=== PATIENT | female | born 1935 | race Caucasian/White ===

== ENCOUNTER 2016-10-10 00:56 | Day surgery (SDC) | payer MEDICARE, OTHER ==
[~2016-10-10] VITALS: Ht 160 cm; Wt 87.0 kg
[2016-10-10] VITALS (8 sets, daily range): BP systolic 99–133; BP diastolic 35–89; PULSE 56–77; RESP 20; O2SAT 98
[~2016-10-10 00:56] MED LIST: ACET1TAB44 PO; ALEN70TA2 PO; ATOR40TA69 PO; CHOL200047 PO; CLOP75TA28 PO; DABI150C PO; FLUT9.9S NS; FURO40TA4 PO; HYDR-4003 PO; LISI40TA PO; METO25TA6 PO; NITR0.4T SL; NYST1000 PO; OMEP20CA11 PO; POTA20TA16 PO; SENN1TAB90 PO; VITA150T PO
[2016-10-10] MEDS ORDERED: Propofol 10,000 mCg/mL 20 mL Inj ONE (00:57)
[2016-10-10] MEDS ORDERED: Lactated Ringer's 1,000 ML IV ONE (05:00)
--- NOTE | 2016-10-10 13:00 | NUR ---
Admitted today for an elective cardioversion with anesthesia today with Dr Sesay Atrial fib rhythm on admit to [facility] - Daughter is at bedside.
[2016-10-10] MEDS ORDERED: FURO-128 PO (14:35)
[2016-10-10] MEDS ORDERED: POTA20TA16 PO (14:35)
[2016-10-10] MEDS ORDERED: 0.9% Sodium Chloride 1,000 ML ONE (15:00)
--- NOTE | 2016-10-10 15:17 | PCM.ANEP2 ---
Post Anesthesia Evaluation ASA/CMS Post Anesthesia VS in Patient's Normal Range?: Yes Resp Stable; Airway Patent?: Yes CV Function & Hydration Stable: Yes Mental Status Recovered?: Yes Pain control Satisfactory?: Yes N/V Control Satisfactory?: Yes Joseph Ferrari MD Oct 10, 2016 15:17
--- NOTE | 2016-10-10 15:17 | PCM.HPANE ---
Patient Data Surgeon Admitting Provider: Attending Provider:Case Sesay MD Primary Care Physician:Rashaun Staley MD Other Provider:Odilia Resendezingham Anesthesia Reason for Visit Chronic Atrial Fibrillation Ht/WT & BMI Height (Feet): 5 Height (Inches): 3.00 Weight (Kilograms): 87.000 Body Mass Index 33.98 Allergies Coded Allergies: Penicillins (Verified Allergy, Severe, CONFUSION, 10/10/16) ibuprofen (Verified Allergy, Unknown, 10/10/16) Past Anesthesia History Anesthesia History: Denies:: Abnormal Airway, Anesthesia Reactions, Difficult Intubation, Fam Anesthesia Reaction, Fam Malignant Hypertherm, Malignant Hyperthermia Diabetes History Hx Diabetes?: No MRSA MRSA: No Medications Hypertension Medication: Yes Home Meds Incl Beta Bandar: Yes Previous Beta Bandar Dose >24: Previous Dose <24 Hours Active Scripts Nitroglycerin SL (Nitrostat)0.4 Mg Tab.subl0.4 Mg SL Q5MIN PRN For Chest Pain # 30 Prov:Sabino Crawford MD 09/01/16 Metoprolol Tartrate 25 Mg Thclbv38 Mg PO BID #60 TABLET Prov:Sabino Crawford MD 09/01/16 Clopidogrel 75 Mg Expbet54 Mg PO DAILY #30 TABLET Prov:Sabino Crawford MD 09/01/16 Reported Medications Potassium Chloride 20 Meq Tab.er.prt20 Meq PO Everyother day 30 Days Ref 0 TAKE WITH FOOD 10/10/16 Furosemide (Lasix)40 Mg Qecjbl24 Mg PO every other day 30 Days Ref 0 10/10/16 Sennosides/Docusate Sodium (Senna-Docusate Sodium Tablet)1 Each Tablet2 Each PO 10/07/16 Atorvastatin Calcium 40 Mg Louggf29 Mg PO DAILY Ref 0 10/07/16 Acetaminophen/Codeine 300-60mg 1 Each Tablet1 Tablet PO TID PRN Pain Ref 0 10/07/16 Omeprazole 20 Mg Capsule.dr20 Mg PO DAILY Ref 0 08/27/16 Vitamin B Complex & Vit C No.4 (Super B Complex)150 Mg Iwgrvj513 Mg PO DAILY 08/27/16 Cholecalciferol (Vitamin D3) (Vitamin D3)2,000 Unit Capsule2,000 Unit PO DAILY 08/27/16 Fluticasone Propionate (Flonase Allergy Relief)50 Mcg/Actuation [place].susp1 [place] NS DAILY 08/07/16 Alendronate Sodium (Fosamax)70 Mg Zjkdwk42 Mg PO monday 30 Days Ref 0 08/07/16 Dabigatran Etexilate Mesylate (Pradaxa)150 Mg Mgwtxwy872 Mg PO BID 30 Days 08/07/16 Hydrocodone-Acetaminophen 5-325 mg 1 Each Tablet1-2 Tablet PO QID PRN For Pain 05/18/16 Lisinopril 40 Mg Jqntaz02 Mg PO DAILY 04/06/15 Discontinued Reported Medications Atorvastatin (Lipitor)20 Mg Xlaolv87 Mg PO DAILY Ref 0 08/27/16 Discontinued Scripts Potassium Chloride 20 Meq Tab.er.prt20 Meq PO DAILYWM #30 Prov:Sabino Crawford MD 09/01/16 Furosemide 40 Mg Mokmre17 Mg PO DAILY #30 TABLET Prov:Sabino Crawford MD 09/01/16 Nystatin 100,000 Unit/1 Ml Oral.kuja852,000 Unit PO PCHS #1 Prov:Sabino Crawford MD 09/01/16 [Senna/Docusate Sodium] (Senokot S)1 TABLET TABLET No Conflict Check2 Tablet PO BID PRN For Constipation #30 Prov:Sabino Crawford MD 09/01/16 History History of ENT Problems?: No HEENT History: Positive for:: Sinus Problem Denies:: Abnormal Airway Cataracts Difficult Intubation Dysphagia Hearing Problem Hx of Heart Problems?: Yes Cardiovascular History: Positive for:: Congestive Heart Failure (Recent heart failure) Edema Hypertension Irregular Heartbeat Denies:: Cardiac Surgery Chest Pain Heart Murmur Pacemaker Peripheral Vascular Thrombophlebitis Valvular Heart Disease Hx of Respiratory Problem?: Yes Respiratory History: Positive for:: Asthma (self diagnosed) Denies:: COPD Chest Surgery Dyspnea Emphysema Hemoptysis Pneumonia Pulmonary Embolism (WORKUP 10/2012) Tuberculosis Use of C-PAP Machine (SNORES) Hx Neurologic Problems?: Yes Neurological History: Denies:: Alzheimer's Disease CVA (Questionable last April - TIA vs) Dementia Dizziness Headaches Parkinson's Disease Seizures Hx of GI Problems?: No Gastrointestinal History: Positive for:: Gastroesphageal Reflux Heartburn Denies:: Diverticulitis Gastrointestinal Bleeding Hepatitis Hiatal Hernia Rectal Bleeding Hx of Problems?: No Genitourinary History: Positive for:: Urinary Tract Infection Denies:: HX of Hemodialysis Kidney Stones HX of Peritoneal Dialysis: No Female Hx: Denies:: Currently Endometriosis Pelvic Inflammatory Problems with Breasts? Skin History: Positive for:: History Skin Disorders? (VERY DRY SKIN, PARTICULARLY EARS) Denies:: Pressure Ulcers Hx Musculoskeletal Problems?: Yes Musculoskeletal History: Positive for:: Back Injury Joint Replacement (left knee) Denies:: Musculoskeletal Trauma Hx of Psycho/Social Problems?: No Psycho Social History: Denies:: Anxiety Bipolar Disorder Hx Depression Suicide Attempt Hx Surgeries?: Yes (thyroidectomy, large polyp removed) Hx Any Other Health Problems?: No Other History: Positive for:: Thyroid Disease Denies:: Cancer Endocrine Disease Hospitalization History Blood Transfusions: Positive for:: Accept Blood Products? Denies:: Blood Transfuse Reaction Blood Transfusions Hx Diabetes: No Hx Alcohol Use: YesAlcoholic Drinks Per Day: rareHx Substance Use: No Smoking Status: Former Smoker Have You Smoked inLast 12 mo: No Stop/Bang [place] Risk Assessment: Low Risk, <3 Yes Risk Assessment Category Category 1A: Patient has history of documented sleep apnea, and HAS NOT received any narcotic, sedative or anesthesia administration during this stay. Category 1B: Patient has history of documented sleep apnea, and HAS received any narcotic , sedative or anesthesia administration during this stay Category 2: Patient has SUSPECTED Obstructive Sleep Apnea, and HAS received any narcotic , sedative or anesthesia administration during this stay. Category 3: Patient has SUSPECTED Obstructive Sleep Apnea and HAS NOT received narcotic, sedative or anesthesia administration during this stay. Category 4: Outpatient in Procedural Areas with known sleep apnea or who screen positive for High Risk via the STOP/BANG questionnaire. Exam Exam Vital Signs Vital Signs Date Time Temp Pulse Resp B/P Pulse Ox O2 Delivery O2 Flow Rate FiO2 10/10/16 14:18 36.8 77 20 133/89 98 Nasal Cannula 2.00 General Appearance: Alert, Oriented X3, Cooperative, No Acute Distress HEENT/AIRWAY: MP 2, Other (dentures) Lungs: Clear to Auscultation, Normal Air Movement Heart: Normal S1, Normal S2 (irregularly irregular) Meds/Labs/Diagnostics Labs Test 10/10/16 14:27 Sodium Level 140mEq/L (134-144) Potassium Level 4.4mEq/L (3.5-5.2) Chloride Level 102mEq/L (97-108) Carbon Dioxide Level 26mmol/L (18-29) Blood Urea Nitrogen 26mg/dL (8-27) Creatinine 1.30mg/dL (0.57-1.00) Estimat Glomerular Filtration Rate 56mL/min (>59) Glucose Level 97mg/dL (60-99) Calcium Level 10.7mg/dL (8.5-10.1) Plan Impression Patient chart reviewed, patient interviewed and anesthestic plan with risks, benefits, and alternatives discussed, and informed consent obtained. ASA Physical Status: ASA3 Severe Disease Anesthetic Plan: GA Bene/Risks/Altern/Consents: Yes HP Complete Prior to Induction: Yes (H&P reviewed, consent given prior to procedure. computer info filled out after procedure.) Joseph Ferrari MD Oct 10, 2016 15:17
[2016-10-10] MEDS ORDERED: Atropine 1 mg/10 mL (Code) Syringe ONE (15:19)
--- NOTE | 2016-10-10 16:00 | NUR ---
Successful Cardioversion. EKG completed. Pt awake and orientated at time of D/C. Home care instructions reviewed with patient and patient's Daughter. NSB-NSR at time of D/C from [facility]. Office to call with follow up.
--- NOTE | 2016-10-10 16:12 | OUT PROC ---
[address] [address] PROCEDURE NOTE PATIENT: ANNETTE MEDRANO : 1935 MR#: [id number] ADMIT: 10/10/2016 JOB ID: [id number] DATE OF PROCEDURE: 10/10/2016 PROCEDURE: Cardioversion. INDICATION: Chronic AFib with history of intermittent fast ventricular rate, diastolic heart failure with preserved LV function. CONSENT: Informed consent was obtained from the patient after explaining benefits and the risks, which include, but not limited to, risk of asystole, stroke, anesthesia-related complication, etc. The patient verbalizes understanding. All the questions were answered. WRAPPER STEMMER OPERATOR: Case Sesay MD. SEDATION: Anesthesiologist gave the sedation. PROCEDURE: The patient was brought to [facility] in a stable condition. She has been on Pradaxa for more than two months for anticoagulation, 150 mg twice a day. Prior to procedure, electrolytes, TSH were checked. The patient was monitored constantly with blood pressure recording, EKG monitoring, and pulse oximetry monitoring. Anesthesiologist gave sedation. After adequate sedation, as patient was in AFib, using standard anterior-posterior pads, single synchronized 200-joule biphasic shock was delivered. It was successful. The patient converted to sinus rhythm. There was no immediate complication. CONCLUSION: Successful cardioversion. The patient received single 200- joule biphasic synchronized shock x1, which was successful. No immediate complication. She will remain on anticoagulation, Pradaxa 150 mg twice a day, along with other standard medications. No driving today. Discussed the plan with the patient's daughter. She will be seen in our clinic in couple of weeks with mid level with 12-lead EKG. If she flips back to AFib, will recommend antiarrhythmic therapy, likely amiodarone followed by cardioversion again.
== END 2016-10-10 23:59 | disposition home or self-care (01) ==
LOC: SOUO 00:56
PROVIDERS: ATTEND Internal Medicine Cardiovascular Disease
DX: I48.2 Chronic atrial fibrillation (principal); K74.60 Unspecified cirrhosis of liver; E78.5 Hyperlipidemia, unspecified; I70.203 Unspecified atherosclerosis of native arteries of extremities, bilateral legs; I50.30 Unspecified diastolic (congestive) heart failure; I12.9 Hypertensive chronic kidney disease with stage 1 through stage 4 chronic kidney disease, or unspecified chronic kidney disease; N18.9 Chronic kidney disease, unspecified; I34.0 Nonrheumatic mitral (valve) insufficiency; Z79.02 Long term (current) use of antithrombotics/antiplatelets

== ENCOUNTER 2016-11-14 08:07 | Inpatient (IN) | payer MEDICARE, OTHER ==
[~2016-11-14] VITALS: Ht 165.1 cm; Wt 91.2 kg
[~2016-11-14 08:07] MED LIST changes: +FURO-128 PO; -FURO40TA4 PO; -NYST1000 PO
[2016-11-14 08:24] VITALS: BP 160/69; PULSE 83; RESP 15; O2SAT 97
[2016-11-14] MEDS ORDERED: AMIO400T4 PO (08:31)
[2016-11-14] MEDS ORDERED: 0.9% Sodium Chloride 1,000 ML IV ONE (08:59)
--- NOTE | 2016-11-14 08:59 | ED.REPORT ---
HPI-Abd Pain F 40 and Over Date of Service Nov 14, 2016 ED Provider: Toby Yang MD 81 year old female with a history of colon polyps and partial colectomy, atrial fibrillation, on Pradaxa presents to the ER accompanied by her daughter complaining of an episode of grossly bloody stool this morning. She states that the bowel movement was composed almost completely of blood, with clots and some loose stool present. Patient denies fever, abdominal pain, dizziness/ lightheadedness, vomiting, and history of rectal bleeding. Colonoscopy within the last three years indicated polyps that resulted in partial colectomy. Nursing Notes Stated Complaint: BLOOD IN STOOL Chief Complaint: Female Abdominal Pain Nursing Notes Reviewed: Yes Allergies: Coded Allergies: Penicillins (Verified Allergy, Severe, CONFUSION, 11/14/16) ibuprofen (Verified Allergy, Unknown, 11/14/16) Scheduled Alendronate Sodium (Fosamax) 70 Mg Tablet 70 MG PO monday Amiodarone (Amiodarone) 400 Mg Tablet 400 MG PO BID Atorvastatin Calcium (Atorvastatin Calcium) 40 Mg Tablet 40 MG PO DAILY Cholecalciferol (Vitamin D3) (Vitamin D3) 2,000 Unit Capsule 2,000 UNIT PO DAILY Clopidogrel (Clopidogrel) 75 Mg Tablet 75 MG PO DAILY Dabigatran Etexilate Mesylate (Pradaxa) 150 Mg Capsule 150 MG PO BID Fluticasone Propionate (Flonase Allergy Relief) 50 Mcg/Actuation [place].susp 1 SPRAY NS DAILY Furosemide (Lasix) 40 Mg Tablet 40 MG PO every other day Lisinopril (Lisinopril) 40 Mg Tablet 40 MG PO DAILY Metoprolol Tartrate (Metoprolol Tartrate) 25 Mg Tablet 50 MG PO BID Omeprazole (Omeprazole) 20 Mg Capsule.dr 20 MG PO DAILY Potassium Chloride (Potassium Chloride) 20 Meq Tab.er.prt 20 MEQ PO Everyother day TAKE WITH FOOD Vitamin B Complex & Vit C No.4 (Super B Complex) 150 Mg Tablet 150 MG PO DAILY Scheduled PRN Acetaminophen/Codeine 300-60mg (Acetaminophen/Codeine 300-60mg) 1 Each Tablet 1 TABLET PO TID PRN PRN Pain Hydrocodone-Acetaminophen 5-325 mg (Hydrocodone-Acetaminophen 5-325 mg) 1 Each Tablet 1-2 TABLET PO QID PRN PRN For Pain Nitroglycerin SL (Nitrostat) 0.4 Mg Tab.subl 0.4 MG SL Q5MIN PRN PRN For Chest Pain Sennosides/Docusate Sodium (Senna-Docusate Sodium Tablet) 1 Each Tablet 2 EACH PO DIRECTED PRN PRN For Constipation General Time Seen by MD: 08:55 Chief Complaint Rectal bleeding Hx Obtained From: Patient Arrived By: Walk-in Sudden in Onset?: No Onset Occurred: 1 - 4 hours ago Associated with: Denies: Fever, Nausea, Vomiting Past Medical History Past Medical History Notes: PCP Rashaun Staley Past Medical History Adenomatous cecal polyp with high-grade dysplasia. Hyperparathyroidism Scoliosis Osteoporosis Hypertension Chronic low back pain Gout History of confusion with possible TIA Bilateral carotid artery stenosis demand ischemia Reports: Atrial fibrillation Past Surgical History parathyroid left total knee replacement bowel resection Reports: Hysterectomy Family History non-contributory Smoking History Former Smoker Social History Alcohol Use: Denies alcohol use Drug Use: Denies drug use Other Social History: Good social support, Local resident Ambulatory Status Independent Review of Systems Constitutional: Denies: Chills, Fever GI: Reports: Bloody/tarry stool, Diarrhea, Hematochezia, Denies: Abdominal pain, Hematemesis, Nausea, Vomiting Complete sys rev & neg: except as marked. Neurologic: Denies: Dizziness, Lightheaded, Spinning sensation, Syncope, Weakness Physical Exam Vital Signs Vital Signs (First) Date Time Temp Pulse Resp B/P Pulse Ox O2 Delivery O2 Flow Rate FiO2 11/14/16 08:24 36.5 83 15 160/69 97 Room Air Initial VS: Reviewed Head / Eyes: Atraumatic, Normocephalic Skin: Warm, Dry, No cyanosis Neurologic: Alert, Oriented, Nonfocal Psychiatric: Mood/affect normal, Behavior normal, Normal thought content General/Constitutional: Awake, Alert, Well developed, Well nourished Respiratory / Chest: Breath sounds NL, Breath sounds = bilat, No respiratory distress, No rales, No rhonchi, No wheezing, No stridor Cardiovascular: Heart rate NL, Regular rhythm, Heart sounds NL, Peripheral circulation NL Abdomen: Soft, No guarding, No rebound, No distention Tenderness/Guarding/Rebound: Positive: Tender LLQ... (Mild) Interpretation & Diagnostics Lab Results Interpretation Result Diagram: 11/14/16 0905 11/14/16 0905 Test 11/14/16 09:05 11/14/16 10:32 White Blood Count 4.2th/mm3 (3.8-10.1) Red Blood Count 3.78mil/mm3 (3.90-5.20) Hemoglobin 10.2g/dL (12.0-15.6) Hematocrit 32.5% (35.0-46.0) Mean Corpuscular Volume 86.0fL (81-100) Mean Corpuscular Hemoglobin 27.0pg (27.0-35.0) Mean Corpuscular Hemoglobin Concent 31.4% (32.0-37.0) Red Cell Distribution Width 15.8% (12.3-15.4) Platelet Count 195bil/L (150-400) Neutrophils (%) (Auto) 52.7% (40-74) Lymphocytes (%) (Auto) 34.2% (14-46) Monocytes (%) (Auto) 9.5% (4-12) Eosinophils (%) (Auto) 3.1% (0-5) Basophils (%) (Auto) 0.5% (0-3) Sodium Level 142mEq/L (134-144) Potassium Level 4.7mEq/L (3.5-5.2) Chloride Level 106mEq/L (97-108) Carbon Dioxide Level 26mmol/L (18-29) Blood Urea Nitrogen 31mg/dL (8-27) Creatinine 1.78mg/dL (0.57-1.00) Estimat Glomerular Filtration Rate 39mL/min (>59) Glucose Level 102mg/dL (60-99) Calcium Level 9.6mg/dL (8.5-10.1) Magnesium Level 1.8mg/dL (1.6-2.6) Total Bilirubin 0.3mg/dL (0.0-1.2) Aspartate Amino Transf (AST/SGOT) 18U/L (0-50) Alanine Aminotransferase (ALT/SGPT) 9U/L (0-32) Alkaline Phosphatase 56U/L (25-165) Total Protein 6.1g/dL (6.4-8.4) Albumin 3.7g/dL (3.4-5.0) Lipase 50U/L (13-60) Urine Color Yellow (YELLOW) Urine Appearance Hazy (CLEAR,HAZY) Urine pH 5.5 (5.0-8.0) Urine Specific [place] 1.020 (1.003-1.035) Urine Protein Negativemg/dL (NEG,TRACE) Urine Glucose (UA) Negativemg/dL (NEGATIVE) Urine Ketones Negativemg/dL (NEGATIVE) Urine Occult Blood Negative (NEGATIVE) Urine Nitrite Negative (NEGATIVE) Urine Bilirubin Negative (NEGATIVE) Urine Urobilinogen Normalmg/dL (NORMAL) Urine Leukocyte Esterase Negative (NEGATIVE) Urine RBC 0-2/hpf (0-2) Urine WBC 0-5/hpf (0-5) Urine Epithelial Cells Occasional/hpf (NONE-MOD) Urine Crystals None seen (NONE SEEN) Urine Bacteria None/hpf (NONE-FEW) Urine Hyaline Casts Occasional/lpf (NONE) Urine Granular Casts None seen (NONE SEEN) Urine Waxy Casts None seen (NONE SEEN) Urine Red Blood Cell Casts None seen (NONE SEEN) Urine White Blood Cell Casts None seen (NONE SEEN) Urine Mucus Present (None Seen) Urine Trichomonas None seen (NONE SEEN) Urine Yeast None (NONE SEEN) Urinalysis Comment None Urine Culture Reflexed Not indicated CT Abd / Pelvis Interpretation IMPRESSION: 1. Cystic left pelvic/adnexal mass. There is mass effect upon the adjacent structures as described above, including the urinary bladder Finding may indicate ovarian malignancy. Initial further assessment with pelvic ultrasound is recommended. 2. Limited evaluation of the bowel secondary to omission of intravenous and oral contrast. No definite acute process involving the bowel. 3. No evidence of urinary tract calcification, nor traction. 4. Cardiomegaly and coronary artery disease. Dictated by: Shayne Abreu M.D. on 11/14/2016 at 12:26 Approved by: Shayne Abreu M.D. on 11/14/2016 at 12:31 Study type: Abdominal CT no contrast Interpretation / Wet Read by: Interpret - Radiologist Re-Eval/Medical Decision Med Decision/Clinical Course 81 year old female with a history of colon polyps and partial colectomy, atrial fibrillation, on Pradaxa presents to the ER accompanied by her daughter complaining of an episode of grossly bloody stool this morning. She states that the bowel movement was composed almost completely of blood, with clots and some loose stool present. Patient denies fever, abdominal pain, dizziness/ lightheadedness, vomiting, and history of rectal bleeding. Colonoscopy within the last three years indicated polyps that resulted in partial colectomy. Here in the emergency department the patient is afebrile with stable vital signs and examination as above. Rectal examination reveals bright red blood without any obvious source of bleeding. 2 large-bore IVs were obtained and the patient's blood was sent for type and screen. Patient was treated with the below medications: Zofran IV fluids Laboratory studies were notable as below: Urine dip negative No leukocytosis Hct 32.5 down from 39.4 two months ago Electrolytes normal Acute kidney injury, Creatinine 1.78 elevated from 1.1-1.[address] scan of the abdomen was obtained as below: 1. Cystic left pelvic/adnexal mass. There is mass effect upon the adjacent structures as described above, including the urinary bladder Finding may indicate ovarian malignancy. Initial further assessment with pelvic ultrasound is recommended. 2. Limited evaluation of the bowel secondary to omission of intravenous and oral contrast. No definite acute process involving the bowel. 3. No evidence of urinary tract calcification, nor traction. 4. Cardiomegaly and coronary artery disease. Patient was discussed with gastroenterology Dr. Villarreal. Patient will be admitted to the critical care unit with plan for endoscopy tomorrow morning. At this time, cause of the patient's GI bleeding is likely lower in etiology and I am concerned that afore mentioned mass lesion may be a contributing factor. Patient discussed with admitting hospitalist and transferred for further management and consultation with gastroenterology. Source of Hx: Old records Re-Evaluation/Progress : Time of Eval: 11:14 Re-Evaluation/Progress Note: Discussed lab results and need for CT and admission. Patient is amenable to the plan. All other questions addressed. Consultation #1: Consulted With: Hospitalist Call Returned at: 12:55 Electrician Bus: Agrees with eval, Agrees with plan, Accepts admit Consultation #2: Referral / Consult Name: Kameron Ackerman MD Consulted With: On-call physician (GI) Call Returned at: 11:47 Electrician Bus: Will see patient Counseled Regarding: Diagnosis, Lab results, Need for admission Discharge & Departure Primary Impression: Lower GI bleed Additional Impressions: Acute kidney injury Hematochezia Anticoagulated by anticoagulation treatment Abdominal mass Abdominal location: unspecified location Qualified Code: R19.00 - Intra- abdominal and pelvic swelling, mass and lump, unspecified site History of colon polyps Disposition: ADMITTED TO HOSPITAL Discharge Condition All VS Reviewed: Yes Condition: Stable Referrals: NOPCP (PCP) Crit Care Except Billable Proc Time Spent: 105-134 minutes Services Performed: Patient management by me, Time spent at bedside, Reviewing test results, Reviewing imaging, Discussing patient care, Documentation in record, Time with fam/surrogate Scribe Attestation Portions of this note were transcribed by Hema Barnes. I, Dr. Yang, personally performed the history, physical exam and medical decision-making; I reviewed and confirmed the accuracy of the information in the transcribed note. Signed by: Jeremías Alvarez, 11/14/2016 and 12:59 Toby Yang MD Nov 14, 2016 08:59 HEMA BARNES Nov 14, 2016 09:01
[2016-11-14] MEDS ORDERED: Ondansetron 2 mg/mL 2 mL Inj IVPUSH ONE (09:00)
[2016-11-14] MEDS ORDERED: HYDROmorphone 0.5 mg/0.5 mL iSecure Syringe IVPUSH PRN (09:00)
[2016-11-14 09:37] LABS: BASOPHILS % (AUTO) 0.5 % (0-3); EOSINOPHILS % (AUTO) 3.1 % (0-5); MONOCYTES % (AUTO) 9.5 % (4-12); NEUTROPHILS % (AUTO) 52.7 % (40-74); Platelet Count 195 bil/L (150-400)
[2016-11-14 09:58] LABS: Magnesium 1.8 mg/dL (1.6-2.6)
[2016-11-14 10:32] VITALS: BP 164/57; PULSE 75; RESP 15; O2SAT 96
[2016-11-14 11:06] LABS: APPEARANCE,URINE HAZY (CLEAR,HAZY); COLOR,URINE YELLOW (YELLOW); OCCULT BLOOD,URINE NEGATIVE (NEGATIVE); PH,URINE 5.5 (5.0-8.0); UROBILINOGEN,URINE NORMAL (NORMAL)
[2016-11-14] MEDS ORDERED: Lactated Ringer's 1,000 ML IV SCH (11:06)
[2016-11-14] MEDS ORDERED: Alum-Mag Hydrox-Simeth 30 mL Suspension PO PRN ×2 (11:10→18:30)
[2016-11-14] MEDS ORDERED: Ondansetron 2 mg/mL 2 mL Inj IVPUSH PRN ×2 (11:10→18:30)
[2016-11-14 11:30] VITALS: BP 139/61; PULSE 82; RESP 18; O2SAT 97
[2016-11-14 11:56] LABS: INR 1.33 ratio
--- NOTE | 2016-11-14 12:30 | NUR ---
Arrived on Unit Patient arrived on floor from ED via stretcher in stable condition. VSS. A&Ox3. No complaints of pain or nausea at this time. Patient orientated to room, call light, and bed. Call light and tray table within reach. Will continue to monitor patient hourly.
--- NOTE | 2016-11-14 12:32 | DRSVH ---
PROCEDURE: CT ABDOMEN AND PELVIS WITHOUT CONTRAST ([id number]) INDICATIONS: lbib, llq pain, diverticulitis? TECHNIQUE: Noncontrast 5 mm thick sections acquired from the diaphragms to the symphysis. 5 mm coronal and sagi ttal reformats were then performed. For radiation dose reduction, the following was used: automated exposure control, adjustment of mA and/or kV according to patient size. COMPARISON: None. FINDINGS: Image quality: Excellent. ABDOMEN: Lung bases: Mild bibasilar atelectasis. Lung bases are otherwise clear. Heart size is enlarged. The re is calcification of the coronary vasculature. Solid organs: Liver and spleen are normal in size. Gallbladder is contracted, and demonstrates a hi gh density focus within its lumen. Pancreas is normal in contours. No adrenal nodules. Kidneys are normal in size, without hydronephrosis or nephrolithiasis. Peritoneum and bowel: Evaluation of the bowel is limited by lack of oral and intravenous contrast. U nenhanced bowel loops demonstrate normal wall thickness and caliber. There is diverticulosis of the d escending and sigmoid colon. No free fluid or air. Nodes and vessels: No retroperitoneal or mesenteric adenopathy by size criteria. Aorta and inferior vena cava are normal in caliber. Miscellaneous: No ventral hernias. PELVIS: Genitourinary: Bladder wall thickness is normal. There is a cystic left pelvic/adnexal mass measuri ng 11.4 cm anteroposterior by 8.1 cm transverse by 8.5 cm craniocaudal, which causes mass effect upon the adjacent sigmoid colon, iliac vasculature, and urinary bladder. Miscellaneous: No inguinal hernias or adenopathy. Bones: No suspicious bony lesions. No vertebral body compression fractures. IMPRESSION: 1. Cystic left pelvic/adnexal mass. There is mass effect upon the adjacent structures as described ab ove, including the urinary bladder Finding may indicate ovarian malignancy. Initial further assessmen t with pelvic ultrasound is recommended. 2. Limited evaluation of the bowel secondary to omission of intravenous and oral contrast. No definit e acute process involving the bowel. 3. No evidence of urinary tract calcification, nor traction. 4. Cardiomegaly and coronary artery disease. Dictated by: Shayne Abreu M.D. on 11/14/2016 at 12:26 Approved by: Shayne Abreu M.D. on 11/14/2016 at 12:31
[2016-11-14 12:38] VITALS: BP 132/78; PULSE 92; RESP 19; O2SAT 97
[2016-11-14] MEDS ORDERED: PEG/Electrolytes 4,000 mL Solution PO ONE (16:00)
[2016-11-14] MEDS ORDERED: 0.9% Sodium Chloride 1,000 ML IV SCH (18:27)
[2016-11-14] MEDS ORDERED: Polyethylene Glycol (PEG) 17 Gm Powder PO PRN (18:30)
[2016-11-14 18:33] VITALS: BP 130/75; PULSE 91; RESP 19; O2SAT 96
--- NOTE | 2016-11-14 18:49 | PCM.HPMED ---
Subjective Date of Service Nov 14, 2016 Primary Provider: Admitting Physician: Kameron Ackerman MD Primary Care Physician: Nopjoseluis Attending Physician: Kameron Ackerman MD Chief Complaint: Blood per rectum History of Present Illness: This is a 51 years old female with past medical history of colonic polyps, hypertension, hypothyroidism, atrial fibrillation on anticoagulant but back set. Patient presented to the hospital today after she had some episode of red blood per rectum mixed with clots. Patient denies any previous episodes , she denied any hemoptysis, no hematemesis, no hematuria. Hemoglobin [address] scan of the abdomen showed incidental finding of a cystic pelvic/adnexal mass. CT scan was done without contrast Patient denied any chest pain, shortness of breath, fever, chills. Patient is being admitted to the hospital for just underwent his evaluation and colonoscopy tenosynovitis also her bleed Review of Systems: A comprehensive review by 12 points is negative except for blood per rectum as described in history of present illness Allergies Coded Allergies: Penicillins (Verified Allergy, Severe, CONFUSION, 11/14/16) ibuprofen (Verified Allergy, Unknown, 11/14/16) Home Medications Alendronate Sodium (Fosamax) 70 Mg Tablet 70 MG PO monday Amiodarone (Amiodarone) 400 Mg Tablet 400 MG PO BID Atorvastatin Calcium (Atorvastatin Calcium) 40 Mg Tablet 40 MG PO DAILY Cholecalciferol (Vitamin D3) (Vitamin D3) 2,000 Unit Capsule 2,000 UNIT PO DAILY Clopidogrel (Clopidogrel) 75 Mg Tablet 75 MG PO DAILY Dabigatran Etexilate Mesylate (Pradaxa) 150 Mg Capsule 150 MG PO BID Fluticasone Propionate (Flonase Allergy Relief) 50 Mcg/Actuation [place].susp 1 SPRAY NS DAILY Furosemide (Lasix) 40 Mg Tablet 40 MG PO every other day Lisinopril (Lisinopril) 40 Mg Tablet 40 MG PO DAILY Metoprolol Tartrate (Metoprolol Tartrate) 25 Mg Tablet 50 MG PO BID Omeprazole (Omeprazole) 20 Mg Capsule.dr 20 MG PO DAILY Potassium Chloride (Potassium Chloride) 20 Meq Tab.er.prt 20 MEQ PO Everyother day TAKE WITH FOOD Vitamin B Complex & Vit C No.4 (Super B Complex) 150 Mg Tablet 150 MG PO DAILY PMH Adenomatous cecal polyp with high-grade dysplasia. Hyperparathyroidism Scoliosis Osteoporosis Hypertension Chronic low back pain Gout History of confusion with possible TIA Bilateral carotid artery stenosis demand ischemia Reports: Atrial fibrillation Surgical History parathyroid left total knee replacement bowel resection Reports: Hysterectomy Family History Family history is reviewed and is noncontributory to the present illness Social History Hx Alcohol Use: No Hx Substance Use: No Hx Tobacco Use: Yes (Quit 2001) Smoking Status: Former Smoker Living Arrangement: with Family (patient only with her daughter and grand kids ) Exam Vital Signs Vital Sign - Last Date Time Temp Pulse Resp B/P Pulse Ox O2 Delivery O2 Flow Rate FiO2 11/14/16 12:38 36.3 92 19 132/78 97 Room Air Exam Head / Eyes: Sclerae is anicteric , Atraumatic, Normocephalic General/Constitutional: Awake, Alert, Well developed, Well nourished Chest: Normal respiratory efforts, no chest wall tenderness Lungs : Breath sounds NL, No wheezing, No stridor, no crackle Cardiovascular: Heart rate NL, Regular rhythm, Heart sounds NL, Peripheral circulation NL Abdomen: Soft, No guarding, No rebound, No distention, bowel sounds normal all quadrant Extremities: No edema, no cyanosis Neurologic: Alert, Oriented, grossly non focal Psychiatric: Mood/affect normal, Behavior normal, Normal thought Lab and Diagnostics Result Diagram: 11/14/1690411/14/16904 X-Rays, CTs and MRIs Abdominal CT scan reviewed: IMPRESSION: 1. Cystic left pelvic/adnexal mass. There is mass effect upon the adjacent structures as described above, including the urinary bladder Finding may indicate ovarian malignancy. Initial further assessment with pelvic ultrasound is recommended. 2. Limited evaluation of the bowel secondary to omission of intravenous and oral contrast. No definite acute process involving the bowel. 3. No evidence of urinary tract calcification, nor traction. 4. Cardiomegaly and coronary artery disease. Assessment & Plan 1. Acute blood loss anemia : Monitor H&H and just use when necessary 2. Acute GI bleed secondary to anticoagulation : 3. Atrial fibrillation : Rate is under control. Pradaxa on hold 4. Acute renal failure : Likely secondary to dehydration, and GI bleed 5. Complex adnexal/ovarian mass : CT scan was in fourth contrast. Obtain pelvic ultrasound. Check CA 125 Admit to PCU. Nothing by mouth. Start IV PPI 40 mg IV daily. IV hydration of normal saline at 75 mL per hour GI consulted. Patient under preparation for colonoscopy in the morning. Pradaxa on hold. Patient understands the risk of stroke. Repeat bmp in the morning to follow renal function. SCD for DVT prophylaxis. Medication reviewed and reconciled. GI Prophylaxis: Proton Pump Inhibitor VTE Mechanical Devices: Intermittant Pneumatic CD Resuscitation Status: CPR: Attempt Resuscitation Time spent 75 minutes Kameron Monahan MD Nov 14, 2016 18:49
--- NOTE | 2016-11-14 19:28 | CONS ---
[address] [address] CONSULTATION REPORT PATIENT: ANNETTE MEDRANO : 1935 MR#: [id number] ADMIT: 11/14/2016 JOB ID: [id number] DATE OF SERVICE: 11/14/2016 REASON FOR CONSULTATION: Rectal bleeding. HISTORY OF PRESENT ILLNESS: This is an 81-year-old, female with history of atrial fibrillation, on Pradaxa, history of colon polyps, status post partial colectomy done in the past, hypertension, peripheral artery disease, bilateral carotid artery stenosis, hyperlipidemia, hyperparathyroidism, scoliosis, osteoporosis, gout, GERD, left total knee replacement, thyroidectomy, hysterectomy in the past, who presents for consultation for rectal bleeding x1 day. Patient notes that she had bright red blood per rectum that covered the entire toilet this morning. The patient denies any abdominal pain, melena, nausea, vomiting, hematemesis, change in bowel habits, or unintentional weight loss. The patient states she never had an EGD but had a colonoscopy that was done on October 05, 2012, which showed a submucosal/mucosal cecal lesion polyp, ascending colon lipoma, soft submucosal transverse colon mass, diverticulosis and hemorrhoids. 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 Patient's CEA at that point in time was 3.1. FAMILY HISTORY: The patient denies family history of colon cancer, inflammatory bowel disease, or celiac disease. PAST MEDICAL HISTORY: As stated above. PAST SURGERIES: As stated above. MEDICATIONS: She is on: 1. Amiodarone. 2. Pradaxa. 3. Fosamax. 4. Atorvastatin. 5. Vitamin D. 6. Plavix. 7. Flonase. 8. Lasix. 9. Lisinopril. 10. Metoprolol. 11. Omeprazole 20 mg once a day. 12. Potassium chloride and vitamin D. ALLERGIES: 1. PENICILLIN. 2. IBUPROFEN. SOCIAL HISTORY: The patient denies smoking, alcohol, or drugs. FAMILY HISTORY: Negative for colon cancer, inflammatory bowel disease, or celiac disease. SOCIAL HISTORY: Patient denies alcohol or drugs. She is a former smoker. REVIEW OF SYSTEMS: The patient denies headache, blurred vision, nausea, vomiting, chest pain, shortness breath, abdominal pain, skin rash, joint pain. Vital signs upon presentation: Her temperature is 36.3, pulse 92, blood pressure of 132/78, respiratory rate 19, satting 97% on room air. General: No acute distress. Sclerae anicteric. Neck supple. Lungs: Clear to auscultation bilaterally. Cardiovascular: Regular rhythm and rate. Abdomen: Soft, nondistended. Positive left lower quadrant pain upon palpation. Normoactive bowel sounds. Extremities: No cyanosis, clubbing, edema. LABORATORIES: White count 12.2, hemoglobin 10.2, hematocrit 32, MCV 86, platelet count 195. Sodium 142, potassium 4.7, chloride 106, bicarb 26, BUN 31, creatinine 1.78, glucose 102. Calcium 9.6. Magnesium 1.8. Total bili 0.3, AST 18, ALT 9. Alk phos 56. Total protein 6.1, albumin 3.7, lipase 50. PT 14.3, INR 1.33. CT abdomen and pelvis was performed on November 14, 2016 without contrast, which shows cystic left pelvic and adnexal masses but no acute process within the bowel. It also shows cardiomegaly and coronary artery disease. ASSESSMENT AND PLAN: This is an 81-year-old, female with history of atrial fibrillation, on Pradaxa, history of a questionable stricture of the colon, status post partial colectomy, history of hysterectomy, peripheral arterial disease, coronary artery disease, congestive heart failure, hyperlipidemia, hypertension, hyperparathyroidism, scoliosis, osteoporosis, chronic lower back pain, gout, gastroesophageal reflux disease, history of urinary tract infection, left total knee replacement, thyroidectomy, hypothyroidism, back surgery, who presents here for painless rectal bleeding x1 day. Differential diagnosis includes diverticulosis, which is most likely, versus AVM, versus bleeding polyp, versus hemorrhoids. RECOMMENDATIONS: 1. GoLYTELY prep tonight for colonoscopy with anesthesia tomorrow. 2. Serial hematocrits.
[2016-11-14 20:20] VITALS: BP 157/68; PULSE 87; RESP 18; O2SAT 94
[2016-11-15] VITALS (7 sets, daily range): BP systolic 143–170; BP diastolic 59–89; PULSE 58–99; RESP 14–20; O2SAT 95–97
--- NOTE | 2016-11-15 01:58 | NUR ---
Bloody Stool Upon assessment, patient up to br every 10-15 minutes due to drinking GO LIGHTLY. Patients stool is dark red/bloody. No s/s of weakness or dizziness. VSS. Patient appears comfortable when back in bed. Call light within reach. Care continues.
[2016-11-15] MEDS ORDERED: Lactated Ringer's 1,000 ML IV ONE (06:00)
[2016-11-15 06:23] LABS: Mean Corpuscular Hemoglobin 26.5 pg (27.0-35.0); Mean Corpuscular Volume 86.1 fL (81-100)
[2016-11-15] MEDS ORDERED: Pantoprazole 4 mg/mL 10 mL Inj IVPUSH SCH (07:30)
--- NOTE | 2016-11-15 07:45 | PCM.PNMED ---
Subjective Date of Service Nov 15, 2016 Subjective Patient seen and examined at bedside . H/H dropped further overnight . GI bleed subsided She denies chest pain, or shortness of breath. She is scheduled for colonoscopy today Exam Vital Signs Vital Sign - Last Date Time Temp Pulse Resp B/P Pulse Ox O2 Delivery O2 Flow Rate FiO2 11/15/16 05:18 36.9 76 18 151/61 96 Room Air Intake and Output 11/14/16 11/14/16 11/15/16 Cumulative From/Thru 15:00 23:00 07:00 11/14/16 08:24 - 11/15/16 06:14 Intake Total 1000 ml 323 ml 1622 ml 2945 ml Output Total 400 ml 450 ml 850 ml Balance 1000 ml -77 ml 1172 ml 2095 ml Intake Oral 0 ml 800 ml 800 ml IV Total 1000 ml 323 ml 822 ml 2145 ml Output Urine Total 400 ml 450 ml 850 ml # Bowel Movements 7 7 Exam Head / Eyes: Sclerae is anicteric , Atraumatic, Normocephalic General/Constitutional: Well developed, Well nourished, in bed comfortably Chest: Normal respiratory efforts, no chest wall tenderness Lungs : CLear bilaterally Cardiovascular: Heart rate NL, Regular rhythm, Heart sounds NL, Peripheral circulation NL Abdomen: Soft, No guarding, No rebound, No distention, bowel sounds normal all quadrant Extremities: No edema, no cyanosis , no calf tenderness Neurologic: AAO x 3 . Grossly intact Skin : No rash , no ulcer IVs and Medications Medications Reviewed: Medications were reviewed in detail Lab and Diagnostics Result Diagram: 11/15/1651011/15/16510 X-Rays, CTs and MRIs Abdominal CT scan reviewed: IMPRESSION: 1. Cystic left pelvic/adnexal mass. There is mass effect upon the adjacent structures as described above, including the urinary bladder Finding may indicate ovarian malignancy. Initial further assessment with pelvic ultrasound is recommended. 2. Limited evaluation of the bowel secondary to omission of intravenous and oral contrast. No definite acute process involving the bowel. 3. No evidence of urinary tract calcification, nor traction. 4. Cardiomegaly and coronary artery disease. Assessment & Plan 1. Acute blood loss anemia : Monitor H&H and just use when necessary 2. Acute GI bleed secondary to anticoagulation : 3. Atrial fibrillation : Rate is under control. Pradaxa on hold 4. Acute renal failure : Likely secondary to dehydration, and GI bleed 5. Complex adnexal/ovarian mass : CT scan was without contrast. Obtain pelvic ultrasound. Check CA 125 Clinincally and hemodynamically stale. HB dropped form 10 to 8 today . No need for transfusion at this time . Rectal bleed subsided . Continue IV PPI 40 mg IV daily. NPO in IV hydration. Change fluifd to 1/2 NS @ 100 ml/hr in view of hypernatremia Colonoscopy scheduled for today Renal function improving . Monitor electrolytes an replace PRN . Ca 125 and pelvic US pending . Pelvic/Adnexal Mass seen on CY scan SCD for DVT prophylaxis. GI Prophylaxis: Proton Pump Inhibitor VTE Mechanical Devices: Intermittant Pneumatic CD Resuscitation Status: CPR: Attempt Resuscitation Time spent 25 minutes Kameron Monahan MD Nov 15, 2016 07:45
[2016-11-15] MEDS ORDERED: Propofol 10,000 mCg/mL 20 mL Inj ONE (08:51)
--- NOTE | 2016-11-15 12:41 | DRSVH ---
PROCEDURE: US PELVIC SONOGRAM INDICATIONS: ADNEXAL/OVARIAN MASS. TECHNIQUE: Real-time scanning was performed of the pelvic organs, with image documentation. Additio nal endovaginal scanning was not performed COMPARISON: [facility], CT, CT ABD PELVIS WO CON, 11/14/2016, 12:01. FINDINGS: Transabdominal scanning: Limited scanning through the kidneys shows no hydronephrosis. No pathologi c free abdominal or pelvic fluid. Endovaginal scanning: Uterus: Uterus is normal in size and appearance. Endometrium is not visualized. Ovaries: Complex, predominant solid left adnexal mass is present. It does demonstrate internal vasc ularity measuring 11.4 x 10.5 x 6.4 cm. No free fluid seen. IMPRESSION: 1. Complex, predominant solid left adnexal mass suspicious for ovarian neoplasm. Gynecologic consult ation is recommended. Dictated by: Vikash CASTELLANOS Interpreted: Brenda Meléndez MD on 11/15/2016 at 12:21 Transcribed by: SUSI on 11/15/2016 at 15:40 Approved by: Brenda Meléndez M.D. on 11/15/2016 at 15:21
[2016-11-15] MEDS ORDERED: Lactated Ringer's 1,000 ML IV SCH (13:17)
[2016-11-15] MEDS ORDERED: MetoCLOpramide 5 mg/mL 2 mL Inj IVPUSH PRN (13:20)
--- NOTE | 2016-11-15 13:28 | PCM.HPANE ---
Patient Data Date of Service: Nov 15, 2016 Surgeon Admitting Provider:Kameron Ackerman MD Attending Provider:Kameron Ackerman MD Primary Care Physician:Nopcp Other Provider: Reason for Visit Lower Gi Bleed, Acute Kidney Injury Ht/WT & BMI Height (Feet): 5 Height (Inches): 5.00 Weight (Kilograms): 90.800 Body Mass Index 32.40 Allergies Coded Allergies: Penicillins (Verified Allergy, Severe, CONFUSION, 11/14/16) ibuprofen (Verified Allergy, Unknown, 11/14/16) Past Anesthesia History Anesthesia History: Denies:: Abnormal Airway, Anesthesia Reactions, Difficult Intubation, Fam Anesthesia Reaction, Fam Malignant Hypertherm, Malignant Hyperthermia Diabetes History Hx Diabetes?: No MRSA MRSA: No Medications Active Scripts Nitroglycerin SL (Nitrostat)0.4 Mg Tab.subl0.4 Mg SL Q5MIN PRN For Chest Pain # 30 Prov:Sabino Crawford MD 09/01/16 Metoprolol Tartrate 25 Mg Wmlfsc96 Mg PO BID #60 TABLET Prov:Sabino Crawford MD 09/01/16 Clopidogrel 75 Mg Nhwpmz40 Mg PO DAILY #30 TABLET Prov:Sabino Crawford MD 09/01/16 Reported Medications Amiodarone 400 Mg Riesbh597 Mg PO BID Ref 0 11/14/16 Potassium Chloride 20 Meq Tab.er.prt20 Meq PO Everyother day 30 Days Ref 0 TAKE WITH FOOD 10/10/16 Furosemide (Lasix)40 Mg Glurod44 Mg PO every other day 30 Days Ref 0 10/10/16 Sennosides/Docusate Sodium (Senna-Docusate Sodium Tablet)1 Each Tablet2 Each PO DIRECTED PRN For Constipation 10/07/16 Atorvastatin Calcium 40 Mg Dtxudu33 Mg PO DAILY Ref 0 10/07/16 Acetaminophen/Codeine 300-60mg 1 Each Tablet1 Tablet PO TID PRN Pain Ref 0 10/07/16 Omeprazole 20 Mg Capsule.dr20 Mg PO DAILY Ref 0 08/27/16 Vitamin B Complex & Vit C No.4 (Super B Complex)150 Mg Betsje208 Mg PO DAILY 08/27/16 Cholecalciferol (Vitamin D3) (Vitamin D3)2,000 Unit Capsule2,000 Unit PO DAILY 08/27/16 Fluticasone Propionate (Flonase Allergy Relief)50 Mcg/Actuation [place].susp1 [place] NS DAILY 08/07/16 Alendronate Sodium (Fosamax)70 Mg Idnpyx14 Mg PO monday 30 Days Ref 0 08/07/16 Dabigatran Etexilate Mesylate (Pradaxa)150 Mg Fuelwfs573 Mg PO BID 30 Days 08/07/16 Hydrocodone-Acetaminophen 5-325 mg 1 Each Tablet1-2 Tablet PO QID PRN For Pain 05/18/16 Lisinopril 40 Mg Hpmlbq96 Mg PO DAILY 04/06/15 History History of ENT Problems?: No HEENT History: Positive for:: Sinus Problem Denies:: Abnormal Airway Cataracts (had cataract surgery) Difficult Intubation Dysphagia Glaucoma Hearing Problem Denture Type: Full- Upper Full- Lower Hx of Heart Problems?: Yes Cardiovascular History: Positive for:: Hypertension Irregular Heartbeat (A-Fib) Denies:: Cardiac Surgery Chest Pain Congestive Heart Failure Edema Heart Murmur Pacemaker Thrombophlebitis Valvular Heart Disease Hx of Respiratory Problem?: No Respiratory History: Positive for:: Asthma (self diagnosed) Denies:: COPD Chest Surgery Dyspnea Emphysema Hemoptysis Pneumonia Pulmonary Embolism (WORKUP 10/2012) Tuberculosis Use of C-PAP Machine (SNORES) Hx Neurologic Problems?: No Neurological History: Denies:: Alzheimer's Disease CVA Dementia Dizziness Headaches Parkinson's Disease Seizures Hx of GI Problems?: Yes Gastrointestinal History: Positive for:: Gastrointestinal Bleeding Denies:: Diverticulitis Gastroesphageal Reflux Heartburn Hepatitis Hiatal Hernia Rectal Bleeding Hx of Problems?: Yes Genitourinary History: Positive for:: Urinary Tract Infection Denies:: HX of Hemodialysis Kidney Stones HX of Peritoneal Dialysis: No Female Hx: Denies:: Currently Endometriosis Pelvic Inflammatory Problems with Breasts? Skin History: Positive for:: History Skin Disorders? (VERY DRY SKIN, PARTICULARLY EARS) Denies:: Pressure Ulcers Hx Musculoskeletal Problems?: Yes Musculoskeletal History: Positive for:: Back Injury Joint Replacement (Knee) Denies:: Musculoskeletal Trauma Hx of Psycho/Social Problems?: No Psycho Social History: Denies:: Anxiety Bipolar Disorder Hx Depression Suicide Attempt Hx Surgeries?: No Hx Any Other Health Problems?: Yes Other History: Positive for:: Thyroid Disease (Hyperthyroid 2013) Denies:: Cancer Endocrine Disease Hospitalization History Blood Transfusions: Positive for:: Accept Blood Products? Denies:: Blood Transfuse Reaction Blood Transfusions Hx Diabetes: No Hx Alcohol Use: NoHx Substance Use: No Smoking Status: Former Smoker Have You Smoked inLast 12 mo: No Stop/Bang Treated for Sleep Apnea?: No Do You Have a CPAP Machine?: No S-Snoring: Do You Snore Loudly: No T-Tired: feel tired, fatigued: No O-Obsered: Observed not breath: No P-Blood Pressure: treated: Yes B- Body Mass Index > 35 kg/m2: No A- Age over 50: Yes N- Neck Large Circumference: No G- Gender Male: No BURTON Total Score: 1 BURTON Risk Assessment: Low Risk, <3 Yes Risk Assessment Category Category 1A: Patient has history of documented sleep apnea, and HAS NOT received any narcotic, sedative or anesthesia administration during this stay. Category 1B: Patient has history of documented sleep apnea, and HAS received any narcotic , sedative or anesthesia administration during this stay Category 2: Patient has SUSPECTED Obstructive Sleep Apnea, and HAS received any narcotic , sedative or anesthesia administration during this stay. Category 3: Patient has SUSPECTED Obstructive Sleep Apnea and HAS NOT received narcotic, sedative or anesthesia administration during this stay. Category 4: Outpatient in Procedural Areas with known sleep apnea or who screen positive for High Risk via the STOP/BANG questionnaire. Exam Exam General Appearance: Alert, Oriented X3, Cooperative HEENT/AIRWAY: MP 2 Lungs: Clear to Auscultation, Normal Air Movement Heart: Normal S1, Normal S2 Meds/Labs/Diagnostics Admission Meds Current Medications Polyethylene Glycol/ Electrolytes 4000 ml 4,000 ml ONCE ONCE PO Last administered on 11/14/16 16:45; Start 11/14/16 at 16:00; Stop 11/14/16 at 16:01 ; Status DC Sodium Chloride (Normal Saline) 1,000 ml @ 75 mls/hr [id number] IV Last administered on 11/14/16 20:32; Start 11/14/16 at 18:27; Stop 11/15/16 at 07:39 ; Status DC Pantoprazole 40 mg 40 mg DAILYAC IVPUSH Last administered on 11/15/16 08:22; Start 11/15/16 at 07:30 Sodium Chloride (1/2 Normal Saline) 1,000 ml @ 100 mls/hr Q10H IV Last administered on 2/14/17at 10:54; Start 11/15/16 at 07:40 Labs Test 11/14/16 09:05 11/14/16 09:28 11/14/16 10:32 11/15/16 05:11 Neutrophils (%) (Auto) 52.7% (40-74) Lymphocytes (%) (Auto) 34.2% (14-46) Monocytes (%) (Auto) 9.5% (4-12) Eosinophils (%) (Auto) 3.1% (0-5) Basophils (%) (Auto) 0.5% (0-3) Magnesium Level 1.8mg/dL (1.6-2.6) Total Bilirubin 0.3mg/dL (0.0-1.2) Aspartate Amino Transf (AST/SGOT) 18U/L (0-50) Alanine Aminotransferase (ALT/SGPT) 9U/L (0-32) Alkaline Phosphatase 56U/L (25-165) Total Protein 6.1g/dL (6.4-8.4) Albumin 3.7g/dL (3.4-5.0) Lipase 50U/L (13-60) Prothrombin Time 14.3sec (8.1-12.5) Prothromb Time International Ratio 1.33ratio Urine Color Yellow (YELLOW) Urine Appearance Hazy (CLEAR,HAZY) Urine pH 5.5 (5.0-8.0) Urine Specific [place] 1.020 (1.003-1.035) Urine Protein Negativemg/dL (NEG,TRACE) Urine Glucose (UA) Negativemg/dL (NEGATIVE) Urine Ketones Negativemg/dL (NEGATIVE) Urine Occult Blood Negative (NEGATIVE) Urine Nitrite Negative (NEGATIVE) Urine Bilirubin Negative (NEGATIVE) Urine Urobilinogen Normalmg/dL (NORMAL) Urine Leukocyte Esterase Negative (NEGATIVE) Urine RBC 0-2/hpf (0-2) Urine WBC 0-5/hpf (0-5) Urine Epithelial Cells Occasional/hpf (NONE-MOD) Urine Crystals None seen (NONE SEEN) Urine Bacteria None/hpf (NONE-FEW) Urine Hyaline Casts Occasional/lpf (NONE) Urine Granular Casts None seen (NONE SEEN) Urine Waxy Casts None seen (NONE SEEN) Urine Red Blood Cell Casts None seen (NONE SEEN) Urine White Blood Cell Casts None seen (NONE SEEN) Urine Mucus Present (None Seen) Urine Trichomonas None seen (NONE SEEN) Urine Yeast None (NONE SEEN) Urinalysis Comment None Urine Culture Reflexed Not indicated White Blood Count 3.3th/mm3 (3.8-10.1) Red Blood Count 3.24mil/mm3 (3.90-5.20) Hemoglobin 8.6g/dL (12.0-15.6) Hematocrit 27.9% (35.0-46.0) Mean Corpuscular Volume 86.1fL (81-100) Mean Corpuscular Hemoglobin 26.5pg (27.0-35.0) Mean Corpuscular Hemoglobin Concent 30.8% (32.0-37.0) Red Cell Distribution Width 15.7% (12.3-15.4) Platelet Count 177bil/L (150-400) Sodium Level 146mEq/L (134-144) Potassium Level 4.3mEq/L (3.5-5.2) Chloride Level 111mEq/L (97-108) Carbon Dioxide Level 25mmol/L (18-29) Blood Urea Nitrogen 22mg/dL (8-27) Creatinine 1.22mg/dL (0.57-1.00) Estimat Glomerular Filtration Rate 60mL/min (>59) Glucose Level 90mg/dL (60-99) Calcium Level 9.1mg/dL (8.5-10.1) Plan Impression Patient chart reviewed, patient interviewed and anesthestic plan with risks, benefits, and alternatives discussed, and informed consent obtained. ASA Physical Status: ASA3 Severe Disease Anesthetic Plan: MAC Bene/Risks/Altern/Consents: Yes HP Complete Prior to Induction: Yes Rogers Santoyo DO Nov 15, 2016 13:28
--- NOTE | 2016-11-15 14:30 | PCM.ANEP1 ---
Post Anesthesia Phase 1 PACU Phase 1 Assessment Date of Service: Nov 15, 2016 Vital Signs Vital Signs Date Time Temp Pulse Resp B/P Pulse Ox O2 Delivery O2 Flow Rate FiO2 11/15/16 13:49 36.7 99 16 166/73 97 Room Air Anesthetic Administered: MAC Level of Alertness: Drowsy, not talking REDD's with Equal Strength: Yes Pain: No Nausea or Vomiting: No Oxygen Delivery: Nasal Cannula Lungs: Clear to Auscultation, Normal Air Movement Dermatome Level: Full Sensation Summary AF with variable respons, average 86. Rogers Santoyo DO Nov 15, 2016 14:30
--- NOTE | 2016-11-15 14:41 | NUR ---
pt is off unit for testing Addendum: 11/15/16 at 1441 by TYSON QUICK CNA Amended: Links added.
--- NOTE | 2016-11-15 14:57 | PCM.ANEP2 ---
Post Anesthesia Evaluation ASA/CMS Post Anesthesia Date of Service: Nov 15, 2016 VS in Patient's Normal Range?: Yes Resp Stable; Airway Patent?: Yes CV Function & Hydration Stable: Yes Mental Status Recovered?: Yes Pain control Satisfactory?: Yes N/V Control Satisfactory?: Yes Rogers Santoyo DO Nov 15, 2016 14:57
--- NOTE | 2016-11-15 16:25 | NUR ---
Social Work-attempted initial assessment: Data:EMR Reviewed. SW attempted to see pt today and complete assessment, but is currently not in room out at procedure. SW to follow up with assessment tomorrow. SW will continue to follow. Assessment:Pt who is independent at baseline. Plan;SW to follow up with assessment tomorrow. SW will continue to follow. [place]
[2016-11-15] MEDS: Pantoprazole 8 mg/Hr Infusion IV SCH ×2 (17:30)
--- NOTE | 2016-11-15 17:42 | NUR ---
GI bleed- Patient up to bathroom to pass dark liquid stool this am after bowel prep. Denies dizziness when getting up. Returned from ENDO after colonoscopy procedure. Awake and alert. Denies any discomfort. NPO for EGD tomorrow, except for occasional ice chips.
[2016-11-16] VITALS (9 sets, daily range): BP systolic 119–175; BP diastolic 65–84; PULSE 94–136; RESP 16–18; O2SAT 93–98
--- NOTE | 2016-11-16 00:03 | ENDO ---
[address] [address] ENDOSCOPY PROCEDURE PATIENT: ANNTETE MEDRANO : 1935 MR#: [id number] ADMIT: 11/14/2016 JOB ID: [id number] DATE OF PROCEDURE: 11/14/2016 PROCEDURE: Colonoscopy. PREOPERATIVE DIAGNOSIS(ES): Rectal bleeding. POSTOPERATIVE DIAGNOSIS(ES): 1. Blood seen throughout the entire colon, and intubation into the deep ileum shows evidence of bleeding. 2. An end-to-side small bowel to colonic anastomosis that was seen without evidence of overt signs of bleeding at that site. 3. Mild sigmoid diverticulosis. ANESTHESIA: Monitored anesthesia care. COMPLICATIONS: None. BLOOD LOSS: Minimal. DESCRIPTION OF PROCEDURE: After risks and benefits were explained to the patient, informed consent was obtained. After anesthesia was administered, the colonoscope was inserted from the rectum to the small bowel, and mucosa carefully examined. Prep of the patient was fair. After the procedure, the scope was withdrawn and the procedure terminated. FINDINGS: Upon inspection of the anus, no masses, hemorrhoids, ulcers, or fissures that were seen. Throughout the entire examination, there was blood that was seen with bright blood clots throughout the entire colon. An ileocolonic end-to-side anastomosis was seen without any masses, ulcers or lesions. Upon intubation into the small bowel, there was evidence of blood that was also seen in the small bowel. The scope was then advanced deep into the ileum and I continued to see blood without a source. Retroflexion was normal. IMPRESSION: 1. Mild sigmoid diverticulosis. 2. Blood seen throughout the entire colon, including intubation into the small bowel which showed evidence of bleeding without source. 3. An end-to-side ileocolonic anastomosis that was seen without ulcers or lesions. RECOMMENDATIONS: 1. NPO except for medications. 2. Protonix drip. 3. EGD with anesthesia is scheduled for tomorrow, on Monday. 4. If the patient continues to have overt signs of bleeding and becomes hemodynamically unstable, would recommend RBC tag scan and Interventional Radiology for embolization. 5. Avoid NSAIDs and anticoagulation.
[2016-11-16] MEDS: Pantoprazole 8 mg/Hr Infusion IV SCH ×6 (03:49→21:30)
--- NOTE | 2016-11-16 07:56 | NUR ---
GI No active bleed overnight. Remains NPO for possible EGD today. Will need new IV fluid orders today if continues NPO. Stable, no acute change.
[2016-11-16 08:21] LABS: Mean Corpuscular Hemoglobin 26.4 pg (27.0-35.0)
[2016-11-16] MEDS ORDERED: Propofol 10,000 mCg/mL 20 mL Inj ONE (08:35)
[2016-11-16] MEDS ORDERED: fentaNYL-PF 50 mCg/mL 2 mL Inj ONE (08:35)
--- NOTE | 2016-11-16 09:19 | NUR ---
Social Work-initial assessment: Data:See initial assessment. Pt is a 81 y/o female who was admitted on 11/14/16 for lower GI Bleed per H&P. Pt's insurance is [employer] and [employer] and PCP is ANNA Schmidt. EMR reviewed. Pt's readmission score is 4-high risk. ALISON met with pt at bedside, SW role explained. Pt is alert and oriented x3. Pt resides at home with her daughter, son in law, and grand children where she remains independent with ADLs. Pt does not use any DME and drives. Pt has no HH history, but has been to [facility] and [facility] in the past. Pt has no skilled nursing care insurance or VA benefits. SW discussed DPOA/ advanced directive, pt states she has completed this, SW encouraged a copy to be brought into the hospital. Per RN notes, pt has been up independent in her room. Pt does not anticipate any discharge needs. Pt's family to provide transport home. SW provided phone number and plan on white board in room. No anticipated discharge needs. SW will continue to follow if needs arise. Assessment:Pt who is independent at baseline. Plan:Pt to discharge home when medically stable via POV. No anticipated discharge needs. SW will continue to follow if needs arise. [place] Addendum: 11/16/16 at 0927 by MAY WILLIAMSON Amended: Links added.
--- NOTE | 2016-11-16 13:34 | PCM.PNMED ---
Subjective Date of Service Nov 16, 2016 Subjective Follow-up for tube loss anemia. Patient seen and examined at bedside. H&H is stable at 8/24. Colonoscopy yesterday does not reveal a source of the bleed. An EGD scheduled for today. Exam Vital Signs Vital Sign - Last Date Time Temp Pulse Resp B/P Pulse Ox O2 Delivery O2 Flow Rate FiO2 11/16/16 13:14 36.8 97 172/74 97 11/16/16 09:33 16 Room Air Intake and Output 11/15/16 11/15/16 11/16/16 Cumulative From/Thru 15:00 23:00 07:00 11/14/16 08:24 - 11/16/16 06:30 Intake Total 735 ml 1106 ml 4786 ml Output Total 100 ml 300 ml 1250 ml Balance 635 ml 806 ml 3536 ml Intake Oral 200 ml 0 ml 1000 ml IV Total 535 ml 1106 ml 3786 ml Output Urine Total 100 ml 300 ml 1250 ml # Voids 4 4 # Bowel Movements 0 0 7 Exam General: Overweight female. In bed comfortably. No acute distress Neck: Supple, trachea midline Chest: Normal respiratory effort, no chest wall tenderness. Long: Clear bilaterally, no crackle, no wheezing Heart: S1-S2 regular rate and rhythm no gallop or murmur Abdomen: Non tender non distended, no palpable mass, audible dorsal margin Extremity: No edema, no cyanosis, no calf tenderness. Neurology: Grossly non focal IVs and Medications Medications Reviewed: Medications were reviewed in detail Lab and Diagnostics Result Diagram: 11/16/16 0810 11/16/16 0810 X-Rays, CTs and MRIs Abdominal CT scan reviewed: IMPRESSION: 1. Cystic left pelvic/adnexal mass. There is mass effect upon the adjacent structures as described above, including the urinary bladder Finding may indicate ovarian malignancy. Initial further assessment with pelvic ultrasound is recommended. 2. Limited evaluation of the bowel secondary to omission of intravenous and oral contrast. No definite acute process involving the bowel. 3. No evidence of urinary tract calcification, nor traction. 4. Cardiomegaly and coronary artery disease. Additional Diagnostics Colonoscopy reviewed : Diverticulosis without diverticulitis. Blood seen throughout the colon without any specific source of the bleeding Assessment & Plan 1. Acute blood loss anemia : Significant drop in H&H noted, but not the chest wall for transfusion. GI bleed overall subsided. Patient is status post colonoscopy yesterday which was notable to establish the source of the bleed. Report of colonoscopy noted of blood throughout the colon without any specifics source of bleeding. EGD is scheduled for today. If negative bleeding scan is being considered Continue to monitor H&H every 12 hours and transfuse as needed. Continue holding anti-coagulation. 2. Acute GI bleed secondary to anticoagulation 3. Atrial fibrillation : Rate is under control. Pradaxa on hold due to GI bleed 4. Acute renal failure : Likely secondary to dehydration, and GI bleed. Improved . 5. Complex adnexal/ovarian mass : Ultrasound of the pelvis showed complex mass. TOMOGRAPHIC TECH consulted. Patient will need biopsy. A needle biopsy by interventional radiology is likely but I leave that to the discretion of TOMOGRAPHIC TECH Patient hemodynamically stable . Blood loss anemia is stable with hemoglobin of 8 . Patient is scheduled for EGD tomorrow. Continue monitor H&H and transfuse when necessary SCD for DVT prophylaxis GI Prophylaxis: Proton Pump Inhibitor VTE Mechanical Devices: Intermittant Pneumatic CD Resuscitation Status: CPR: Attempt Resuscitation Time spent 35 minutes Kameron Monahan MD Nov 16, 2016 13:34
--- NOTE | 2016-11-16 14:46 | NUR ---
GI NPO for EGD scheduled this afternoon, no c/o n/v, no stools
--- NOTE | 2016-11-16 15:25 | PCM.CONSUR ---
Subjective Date of Service: Nov 16, 2016 History of Present Illness Phoebe Amos is a pleasant 81yo woman who was admitted to [facility] for Lower GI bleed. During her workup including Abdominal-Pelvis CT she was found to have a L sided adnexal mass. She underwent a focused pelvic ultrasound and was found to have a "Complex, predominant solid left adnexal mass suspicious for ovarian neoplasm...11.4 x 10.5 x 6.4 cm," and a Gynecologic consultation was recommended. CA-125 was check, 7.3 resulted. Pt claims that in January of 2016 she weighed in the 260s, and is now into the 190s, unintentionally. Denies fever, chills out of the ordinary for her. No vaginal bleeding or discharge since menopause nearly 40yrs ago. She is multiparous and lives with daughter, former smoker (quit in 2000 per outpatient record). She reports a relevant family history in her brother for Cancer, and believes her mother from cancer but is unable to say what type or location. Allergy Allergies: Coded Allergies: Penicillins (Verified Allergy, Severe, CONFUSION, 11/15/16) ibuprofen (Verified Allergy, Unknown, 11/15/16) Medications Blood Thinners: Aspirin Acetaminophen/Codeine 300-60mg (Acetaminophen/Codeine 300-60mg) 1 Each Tablet 1 TABLET PO TID PRN PRN Pain (Reported) Last Taken: Unknown Dose on Unknown Date & Time Alendronate Sodium (Fosamax ) 70 Mg Tablet 70 MG PO monday (Reported) Last Taken: Unknown Dose on 11/09/16 0800 Amiodarone (Amiodarone) 400 Mg Tablet 400 MG PO BID (Reported) Last Taken: Unknown Dose on 11/13/162029 Atorvastatin Calcium (Atorvastatin Calcium) 40 Mg Tablet 40 MG PO DAILY (Reported) Last Taken: Unknown Dose on 11/13/16 0800 Cholecalciferol (Vitamin D3) ( Vitamin D3) 2,000 Unit Capsule 2,000 UNIT PO DAILY (Reported) Last Taken: Unknown Dose on 11/13/16 0800 Clopidogrel (Clopidogrel) 75 Mg Tablet 75 MG PO DAILY Prescribed by: LAURENT MCCLAIN MD Last Taken: Unknown Dose on 11/13/16 0800 Dabigatran Etexilate Mesylate ( Pradaxa) 150 Mg Capsule 150 MG PO BID (Reported) Last Taken: Unknown Dose on 11/13/162029 Fluticasone Propionate (Flonase Allergy Relief) 50 Mcg/Actuation [place].susp 1 SPRAY NS DAILY (Reported) Last Taken: Unknown Dose on 11/13/16 0800 Furosemide (Lasix) 40 Mg Tablet 40 MG PO every other day (Reported) Last Taken: Unknown Dose on Unknown Date & Time Hydrocodone-Acetaminophen 5- 325 mg (Hydrocodone-Acetaminophen 5-325 mg) 1 Each Tablet 1-2 TABLET PO QID PRN PRN For Pain (Reported) Last Taken: Unknown Dose on Unknown Date & Time Lisinopril (Lisinopril) 40 Mg Tablet 40 MG PO DAILY (Reported) Last Taken: Unknown Dose on 11/13/16 08 Metoprolol Tartrate (Metoprolol Tartrate) 25 Mg Tablet 50 MG PO BID Prescribed by: LAURENT MCCLAIN MD Last Taken: Unknown Dose on 11/13/162029 Nitroglycerin SL (Nitrostat) 0.4 Mg Tab.subl 0.4 MG SL Q5MIN PRN PRN For Chest Pain Prescribed by: LAURENT MCCLAIN MD Last Taken: Unknown Dose on Unknown Date & Time Omeprazole (Omeprazole) 20 Mg Capsule.dr 20 MG PO DAILY (Reported) Last Taken: Unknown Dose on Unknown Date & Time Potassium Chloride ( Potassium Chloride) 20 Meq Tab.er.prt 20 MEQ PO Everyother day (Reported) TAKE WITH FOOD Last Taken: Unknown Dose on 11/12/16 0800 Sennosides/Docusate Sodium (Senna- Docusate Sodium Tablet) 1 Each Tablet 2 EACH PO DIRECTED PRN PRN For Constipation (Reported) Last Taken: Unknown Dose on Unknown Date & Time Vitamin B Complex & Vit C No.4 (Super B Complex) 150 Mg Tablet 150 MG PO DAILY (Reported) Last Taken: Unknown Dose on 11/13/16 0800 Past Surgical History Surgeries: Yes (THYROID, KNEE REPLACEMENT, Bowel Resection) Patient/Family Past Surgical: Positive for:: Accept Blood Products?, Denies:: Anesthesia Reactions, Blood Transfuse Reaction, Blood Transfusions, Malignant Hyperthermia Social History Occupation: Retired Hx Alcohol Use: No Hx Substance Use: No Hx Tobacco Use: Yes (Quit 2001) PMH HEENT History History of ENT Problems?: No HEENT History: Positive for:: Sinus Problem Denies:: Abnormal Airway Cataracts (had cataract surgery) Difficult Intubation Dysphagia Glaucoma Hearing Problem Cardiovascular History History of Heart Problems?: Yes Cardiovascular History: Positive for:: Hypertension Irregular Heartbeat (A-Fib) Denies:: AICD Cardiac Surgery Chest Pain Congestive Heart Failure Edema Heart Murmur Pacemaker Thrombophlebitis Valvular Heart Disease Respiratory History of Respiratory Problem: No Respiratory History: Positive for:: Asthma (self diagnosed) Denies:: COPD Chest Surgery Dyspnea Emphysema Hemoptysis Pneumonia Pulmonary Embolism (WORKUP 10/2012) Tuberculosis Use of C-PAP Machine (SNORES) Neurological History Hx Neurologic Problems?: No Neurological History: Denies:: Alzheimer's Disease CVA Dementia Dizziness Headaches Parkinson's Disease Seizures Gastrointestinal History HX of GI Problems?: Yes Gastrointestinal History: Positive for:: Gastrointestinal Bleeding Rectal Bleeding Denies:: Diverticulitis Gastroesphageal Reflux Heartburn Hepatitis Hiatal Hernia Genitourinary History Hx of Gu Problems?: Yes Genitourinary History: Positive for: Urinary Tract Infection Denies: HX of Hemodialysis Kidney Stones Female/Male History Reproductive History Female: Denies: Currently ? Endometriosis Pelvic Inflammatory DX Problems with Breasts? Skin History Skin History: Positive for:: History Skin Disorders? (VERY DRY SKIN, PARTICULARLY EARS) Denies:: Pressure Ulcers Musculoskeletal History Hx Musculoskeletal Problems?: Yes Musculoskeletal History: Positive for:: Back Injury Joint Replacement (Knee) Denies:: Musculoskeletal Trauma Psycho Social History Hx of Psycho/Social Problems?: No Psycho Social History: Denies:: Anxiety Bipolar Disorder Hx Depression Suicide Attempt Other History Hx Any Other Health Problems?: Yes Other History: Positive for:: Thyroid Disease (Hyperthyroid - 2013) Denies:: Cancer Endocrine Disease Hospitalization Diabetes: NoBedside Blood Glucose: 69 Other History/Comments Gouty arthropathy PAD (peripheral artery disease) CHF with left ventricular diastolic dysfunction, NYHA class 2 Carotid artery occlusion COPD Urinary frequency Colon cancer Hypertension Essential Aftercare following surgery for cancer or tumor Stool incontinence Atrial fibrillation by electrocardiogram Acute on chronic renal failure Chronic kidney disease, unspecified Onychomycosis Hyperlipidemia Hyperparathyroidism Status post partial colectomy Edema Hyperparathyroidism Atrial fibrillation by electrocardiogram Social History Hx Alcohol Use: NoHx Substance Use: NoHx Tobacco Use: Yes (Quit 2001) Smoking Status: Former Smoker Living Arrangement: with Family (patient only with her daughter and grand kids ) Family History Family History: Mother - of cancer at 88yo Father - CVA, passed at 85 Brother - CAD, Cancer, unknown type. Objective Exam Objective Laying bed, no apparent distress, appropriate demeanor. Vital Signs & I/O Vital Sign- Last 8 Hours Date Time Temp Pulse Resp B/P Pulse Ox O2 Delivery O2 Flow Rate FiO2 11/16/16 13:14 36.8 97 172/74 97 11/16/16 09:33 36.7 100 16 172/69 94 Room Air Intake and Output- Last 8 Hour 11/16/16 Cumulative From/Thru 07:00 11/14/16 08:24 - 11/16/16 06:30 Intake Total 1106 ml 4786 ml Output Total 300 ml 1250 ml Balance 806 ml 3536 ml Intake Oral 0 ml 1000 ml IV Total 1106 ml 3786 ml Output Urine Total 300 ml 1250 ml # Voids 4 # Bowel Movements 0 7 Lab & Micro Results Laboratory Tests Test 11/16/16 08:10 White Blood Count 3.3th/mm3 (3.8-10.1) Red Blood Count 3.22mil/mm3 (3.90-5.20) Hemoglobin 8.5g/dL (12.0-15.6) Hematocrit 27.7% (35.0-46.0) Mean Corpuscular Volume 86.0fL (81-100) Mean Corpuscular Hemoglobin 26.4pg (27.0-35.0) Mean Corpuscular Hemoglobin Concent 30.7% (32.0-37.0) Red Cell Distribution Width 15.3% (12.3-15.4) Platelet Count 174bil/L (150-400) Sodium Level 143mEq/L (134-144) Potassium Level 4.5mEq/L (3.5-5.2) Chloride Level 106mEq/L (97-108) Carbon Dioxide Level 22mmol/L (18-29) Blood Urea Nitrogen 14mg/dL (8-27) Creatinine 1.07mg/dL (0.57-1.00) Estimat Glomerular Filtration Rate 70mL/min (>59) Glucose Level 75mg/dL (60-99) Calcium Level 9.3mg/dL (8.5-10.1) Result Diagram: 11/16/16 0810 11/16/16 0810 Review of Systems: Constitutional: Negative, except as otherwise mentioned in the history above. Ophthalmologic: Negative, except as otherwise mentioned in the history above. Cardiovascular: Negative, except as otherwise mentioned in the history above. Respiratory: Negative, except as otherwise mentioned in the history above. Gastrointestinal: Negative, except as otherwise mentioned in the history above. Genitourinary: Negative, except as otherwise mentioned in the history above. Musculoskeletal: Negative, except as otherwise mentioned in the history above. Neurological: Negative, except as otherwise mentioned in the history above. Psychiatric: Negative, except as otherwise mentioned in the history above. Hematologic/Lymphatic: Negative, except as otherwise mentioned in the history above. Allergic/Immunologic: Negative, except as otherwise mentioned in the history above. H&P Surgical Exam Exam General: Alert, Oriented X3, Cooperative, No Acute Distress HEENT: EOMI, Mucous membranes moist and pink Neck: Within normal limits & unremarkable Respiratory: Clear to Auscultation Cardiac: Other (Irregularly irregular, no CMR) Abdomen: Soft, No tenderness, Other (Foul smell, moist with some pink irritation under panus. superficial mass in suprapubic region.) Breasts: Not Indicated Pelvic: Exceptions (Unable to appreciate pelvic lymph nodes. ) Musculoskeletal: Able to move extremities on her own volition. No hesitation when moving from laying to sitting. Assessment & Plan Assessment 81yo post-menopausal multiparous woman with significant family history of cancer , unintentional weight loss, and finding of adnexal mass. Adnexal Neoplasm, behavior unknown. Yeast infection under abdominal pannus. Problems: (1) Ovarian mass, left Status: Acute ICD Code: N83.9 Pain Evaluation: Adequate Pain Control VTE Prophylaxis Indicated: Contraindicated VTE Prophylaxis: SCDs VTE Mechanical Devices: Intermittant Pneumatic CD VTE Med Contraindicatio: Bleeding Plan: Ovarian Mass - Complex, with vascularization CA 125 was not elevated, behavior uncertain. - Follow up as out patient, possible referral to [facility] for evaluation and assessment of necessity for removal. Yeast infection of abdominal folds -Nystatin Powder BID. Resuscitation Status: CPR: Attempt Resuscitation Attending Statement: Patient seen and examined. She is a female with an 11cm complex adnexal mass incidentally identified on evaluation for GI bleed. She is doing well today, she does note some pelvic pressure and as noted above a 70lb weight loss recently. She denies any issues with early satiety, bloating, constipation or abdominal fullness. CA 125 was within normal limits. Given the entire clinical picture she needs referral and follow up with gynecologic oncology for removal with staging as needed. She should not have IR guided biopsy and drainage as this could potentially seed the abdomen and worsen her prognosis should a cancer be identified. At this point in time we will sign off and allow continued evaluation and workup of her GI bleeding, with plans to follow up with nurse gynecology oncology as an outpatient. Brijesh Conn DO Nov 16, 2016 15:25 Heather Doe MD Nov 16, 2016 19:27
--- NOTE | 2016-11-16 15:30 | NUR ---
Endo Pt leaves floor via WC with ENDO. NPO since last night. A&OX4, RA, Denies CP, Nausea, and SOB. Addendum: 11/16/16 at 1736 by HERMAN MOORE RN Pt returns from ENDO via mirza. A&OX4 and ready to eat! Ambulated to bathroom with steady gait. Care continues
[2016-11-16] MEDS: Lactated Ringer's 1,000 ML IV ONE ×2 (16:18→16:24)
--- NOTE | 2016-11-16 16:23 | PCM.HPANE ---
Patient Data Surgeon Admitting Provider:Kameron Ackerman MD Attending Provider:Kameron Ackerman MD Primary Care Physician:Nopcp Other Provider: Reason for Visit Lower Gi Bleed, Acute Kidney Injury Ht/WT & BMI Height (Feet): 5 Height (Inches): 5.00 Weight (Kilograms): 91.200 Body Mass Index 33.00 Allergies Coded Allergies: Penicillins (Verified Allergy, Severe, CONFUSION, 11/15/16) ibuprofen (Verified Allergy, Unknown, 11/15/16) Past Anesthesia History Anesthesia History: Denies:: Abnormal Airway, Anesthesia Reactions, Difficult Intubation, Fam Anesthesia Reaction, Fam Malignant Hypertherm, Malignant Hyperthermia Diabetes History Hx Diabetes?: No Current Bedside Blood Glucose: 69 MRSA MRSA: No Medications Active Scripts Nitroglycerin SL (Nitrostat)0.4 Mg Tab.subl0.4 Mg SL Q5MIN PRN For Chest Pain # 30 Prov:Sabino Crawford MD 09/01/16 Metoprolol Tartrate 25 Mg Atbypu66 Mg PO BID #60 TABLET Prov:Sabino Crawford MD 09/01/16 Clopidogrel 75 Mg Mgfcip69 Mg PO DAILY #30 TABLET Prov:Sabino Crawford MD 09/01/16 Reported Medications Amiodarone 400 Mg Gezxqu169 Mg PO BID Ref 0 11/14/16 Potassium Chloride 20 Meq Tab.er.prt20 Meq PO Everyother day 30 Days Ref 0 TAKE WITH FOOD 10/10/16 Furosemide (Lasix)40 Mg Eoqlcb12 Mg PO every other day 30 Days Ref 0 10/10/16 Sennosides/Docusate Sodium (Senna-Docusate Sodium Tablet)1 Each Tablet2 Each PO DIRECTED PRN For Constipation 10/07/16 Atorvastatin Calcium 40 Mg Kxbpjd21 Mg PO DAILY Ref 0 10/07/16 Acetaminophen/Codeine 300-60mg 1 Each Tablet1 Tablet PO TID PRN Pain Ref 0 10/07/16 Omeprazole 20 Mg Capsule.dr20 Mg PO DAILY Ref 0 08/27/16 Vitamin B Complex & Vit C No.4 (Super B Complex)150 Mg Uxsqft747 Mg PO DAILY 08/27/16 Cholecalciferol (Vitamin D3) (Vitamin D3)2,000 Unit Capsule2,000 Unit PO DAILY 08/27/16 Fluticasone Propionate (Flonase Allergy Relief)50 Mcg/Actuation Crary.susp1 Crary NS DAILY 08/07/16 Alendronate Sodium (Fosamax)70 Mg Stxxhs18 Mg PO monday 30 Days Ref 0 08/07/16 Dabigatran Etexilate Mesylate (Pradaxa)150 Mg Bjehfml561 Mg PO BID 30 Days 08/07/16 Hydrocodone-Acetaminophen 5-325 mg 1 Each Tablet1-2 Tablet PO QID PRN For Pain 05/18/16 Lisinopril 40 Mg Abcgde23 Mg PO DAILY 04/06/15 History History of ENT Problems?: No HEENT History: Positive for:: Sinus Problem Denies:: Abnormal Airway Cataracts (had cataract surgery) Difficult Intubation Dysphagia Glaucoma Hearing Problem Denture Type: Full- Upper Full- Lower Other HEENT Pertinent History: dentures out Hx of Heart Problems?: Yes Cardiovascular History: Positive for:: Hypertension Irregular Heartbeat (A-Fib) Denies:: AICD Cardiac Surgery Chest Pain Congestive Heart Failure Edema Heart Murmur Pacemaker Thrombophlebitis Valvular Heart Disease Hx of Respiratory Problem?: No Respiratory History: Positive for:: Asthma (self diagnosed) Denies:: COPD Chest Surgery Dyspnea Emphysema Hemoptysis Pneumonia Pulmonary Embolism (WORKUP 10/2012) Tuberculosis Use of C-PAP Machine (SNORES) Hx Neurologic Problems?: No Neurological History: Denies:: Alzheimer's Disease CVA Dementia Dizziness Headaches Parkinson's Disease Seizures Hx of GI Problems?: Yes Gastrointestinal History: Positive for:: Gastrointestinal Bleeding Rectal Bleeding Denies:: Diverticulitis Gastroesphageal Reflux Heartburn Hepatitis Hiatal Hernia Hx of Problems?: Yes Genitourinary History: Positive for:: Urinary Tract Infection Denies:: HX of Hemodialysis Kidney Stones HX of Peritoneal Dialysis: No Female Hx: Denies:: Currently Endometriosis Pelvic Inflammatory Problems with Breasts? Skin History: Positive for:: History Skin Disorders? (VERY DRY SKIN, PARTICULARLY EARS) Denies:: Pressure Ulcers Hx Musculoskeletal Problems?: Yes Musculoskeletal History: Positive for:: Back Injury Joint Replacement (Knee) Denies:: Musculoskeletal Trauma Hx of Psycho/Social Problems?: No Psycho Social History: Denies:: Anxiety Bipolar Disorder Hx Depression Suicide Attempt Hx Surgeries?: Yes (THYROID, KNEE REPLACEMENT, Bowel Resection) Hx Any Other Health Problems?: Yes Other History: Positive for:: Thyroid Disease (Hyperthyroid - 2013) Denies:: Cancer Endocrine Disease Hospitalization History Blood Transfusions: Positive for:: Accept Blood Products? Denies:: Blood Transfuse Reaction Blood Transfusions Hx Diabetes: NoBedside Blood Glucose: 69 Occupation: Retired Hx Alcohol Use: NoHx Substance Use: No Smoking Status: Former Smoker Have You Smoked inLast 12 mo: No Stop/Bang Treated for Sleep Apnea?: No Do You Have a CPAP Machine?: No S-Snoring: Do You Snore Loudly: No T-Tired: feel tired, fatigued: No O-Obsered: Observed not breath: No P-Blood Pressure: treated: Yes B- Body Mass Index > 35 kg/m2: No A- Age over 50: Yes N- Neck Large Circumference: No G- Gender Male: No BURTON Total Score: 2 BURTON Risk Assessment: Low Risk, <3 Yes Risk Assessment Category Category 1A: Patient has history of documented sleep apnea, and HAS NOT received any narcotic, sedative or anesthesia administration during this stay. Category 1B: Patient has history of documented sleep apnea, and HAS received any narcotic , sedative or anesthesia administration during this stay Category 2: Patient has SUSPECTED Obstructive Sleep Apnea, and HAS received any narcotic , sedative or anesthesia administration during this stay. Category 3: Patient has SUSPECTED Obstructive Sleep Apnea and HAS NOT received narcotic, sedative or anesthesia administration during this stay. Category 4: Outpatient in Procedural Areas with known sleep apnea or who screen positive for High Risk via the STOP/BANG questionnaire. Low Risk, <3 Yes Exam Exam Vital Signs Vital Signs Date Time Temp Pulse Resp B/P Pulse Ox O2 Delivery O2 Flow Rate FiO2 11/16/16 15:37 36.3 110 16 175/84 98 Room Air 11/16/16 13:14 36.8 97 172/74 97 11/16/16 09:33 36.7 100 16 172/69 94 Room Air General Appearance: Alert, Oriented X3, Cooperative, No Acute Distress HEENT/AIRWAY: MP 2, Neck Movement Lungs: Clear to Auscultation, Normal Air Movement Heart: Exam Unremarkable, Regular Rate/Rhythm, No Murmurs/Rubs/Gallops Meds/Labs/Diagnostics Admission Meds Current Medications Lactated Ringer's (Lr) 1,000 ml @ ud STK-MED ONCE IV Last administered on 11/16t 16:18; Start 11/16/16 at 15:45; Stop 11/16/16 at 15:47; Status DC Bedside Blood Glucose: 69 Labs Test 11/14/16 09:05 11/14/16 09:28 11/14/16 10:32 11/15/16 05:11 Neutrophils (%) (Auto) 52.7% (40-74) Lymphocytes (%) (Auto) 34.2% (14-46) Monocytes (%) (Auto) 9.5% (4-12) Eosinophils (%) (Auto) 3.1% (0-5) Basophils (%) (Auto) 0.5% (0-3) Magnesium Level 1.8mg/dL (1.6-2.6) Total Bilirubin 0.3mg/dL (0.0-1.2) Aspartate Amino Transf (AST/SGOT) 18U/L (0-50) Alanine Aminotransferase (ALT/SGPT) 9U/L (0-32) Alkaline Phosphatase 56U/L (25-165) Total Protein 6.1g/dL (6.4-8.4) Albumin 3.7g/dL (3.4-5.0) Lipase 50U/L (13-60) Prothrombin Time 14.3sec (8.1-12.5) Prothromb Time International Ratio 1.33ratio Urine Color Yellow (YELLOW) Urine Appearance Hazy (CLEAR,HAZY) Urine pH 5.5 (5.0-8.0) Urine Specific [place] 1.020 (1.003-1.035) Urine Protein Negativemg/dL (NEG,TRACE) Urine Glucose (UA) Negativemg/dL (NEGATIVE) Urine Ketones Negativemg/dL (NEGATIVE) Urine Occult Blood Negative (NEGATIVE) Urine Nitrite Negative (NEGATIVE) Urine Bilirubin Negative (NEGATIVE) Urine Urobilinogen Normalmg/dL (NORMAL) Urine Leukocyte Esterase Negative (NEGATIVE) Urine RBC 0-2/hpf (0-2) Urine WBC 0-5/hpf (0-5) Urine Epithelial Cells Occasional/hpf (NONE-MOD) Urine Crystals None seen (NONE SEEN) Urine Bacteria None/hpf (NONE-FEW) Urine Hyaline Casts Occasional/lpf (NONE) Urine Granular Casts None seen (NONE SEEN) Urine Waxy Casts None seen (NONE SEEN) Urine Red Blood Cell Casts None seen (NONE SEEN) Urine White Blood Cell Casts None seen (NONE SEEN) Urine Mucus Present (None Seen) Urine Trichomonas None seen (NONE SEEN) Urine Yeast None (NONE SEEN) Urinalysis Comment None Urine Culture Reflexed Not indicated CA 125 Antigen 7.3U/mL (0.0-38.1) Test 11/16/16 08:10 White Blood Count 3.3th/mm3 (3.8-10.1) Red Blood Count 3.22mil/mm3 (3.90-5.20) Hemoglobin 8.5g/dL (12.0-15.6) Hematocrit 27.7% (35.0-46.0) Mean Corpuscular Volume 86.0fL (81-100) Mean Corpuscular Hemoglobin 26.4pg (27.0-35.0) Mean Corpuscular Hemoglobin Concent 30.7% (32.0-37.0) Red Cell Distribution Width 15.3% (12.3-15.4) Platelet Count 174bil/L (150-400) Sodium Level 143mEq/L (134-144) Potassium Level 4.5mEq/L (3.5-5.2) Chloride Level 106mEq/L (97-108) Carbon Dioxide Level 22mmol/L (18-29) Blood Urea Nitrogen 14mg/dL (8-27) Creatinine 1.07mg/dL (0.57-1.00) Estimat Glomerular Filtration Rate 70mL/min (>59) Glucose Level 75mg/dL (60-99) Calcium Level 9.3mg/dL (8.5-10.1) Plan Impression Patient chart reviewed, patient interviewed and anesthestic plan with risks, benefits, and alternatives discussed, and informed consent obtained. ASA Physical Status: ASA2 Mod Systemic Disease Anesthetic Plan: MAC Bene/Risks/Altern/Consents: Yes HP Complete Prior to Induction: Yes Stuart Olivo MD Nov 16, 2016 16:23
[2016-11-16] MEDS ORDERED: Lactated Ringer's 1,000 ML IV SCH (16:24)
[2016-11-16] MEDS ORDERED: Ondansetron 2 mg/mL 2 mL Inj IVPUSH PRN (16:25)
--- NOTE | 2016-11-16 16:46 | ENDO ---
[address] [address] ENDOSCOPY PROCEDURE PATIENT: ANNETTE MEDRANO : 1935 MR#: [id number] ADMIT: 11/14/2016 JOB ID: [id number] DATE: 11/14/2016 TYPE OF OPERATION: Esophagogastroduodenoscopy. PREOPERATIVE DIAGNOSIS(ES): Gastrointestinal bleed. POSTOPERATIVE DIAGNOSIS(ES): Lipomas within the small bowel. ANESTHESIA: Monitored anesthesia care. COMPLICATIONS: None. BLOOD LOSS: Minimal. DESCRIPTION OF PROCEDURE: After the risks and benefits were explained to the patient, informed consent was obtained. After anesthesia administered, upper endoscope was inserted into mouth, intubating the esophagus, stomach, to the second portion of duodenum. Mucosa carefully examined. After procedure was done, the scope was withdrawn and procedure terminated. FINDINGS: Upon inspection of the esophagus, the esophagus is normal without masses, ulcers or lesions. Z-line located 40 cm from the incisors. Upon entering the stomach, the stomach was also normal without masses, ulcers or lesions. Retroflexion normal. Duodenal bulb, first and second portion showed multiple lipomas but otherwise no evidence of ulcers or bleeding. IMPRESSIONS: Lipomas within the duodenum, otherwise no ulcers or source of bleeding and no overt signs of bleeding. RECOMMENDATIONS: 1. Okay to start clear liquid diet. Advance as tolerated. 2. The patient to followup in GI clinic after discharge. Will recommend an outpatient capsule endoscopy for obscure GI bleed. 3. Okay to discharge home from a GI standpoint given the fact that the patient's hemoglobin has stabilized and no further overt signs of bleeding.
--- NOTE | 2016-11-16 17:02 | PCM.ANEP2 ---
Post Anesthesia Evaluation ASA/CMS Post Anesthesia VS in Patient's Normal Range?: Yes Resp Stable; Airway Patent?: Yes CV Function & Hydration Stable: Yes Mental Status Recovered?: Yes Pain control Satisfactory?: Yes N/V Control Satisfactory?: Yes Stuart Olivo MD Nov 16, 2016 17:02
--- NOTE | 2016-11-16 17:02 | PCM.ANEP1 ---
Post Anesthesia Phase 1 PACU Phase 1 Assessment Date of Service: Nov 16, 2016 Vital Signs Vital Signs Date Time Temp Pulse Resp B/P Pulse Ox O2 Delivery O2 Flow Rate FiO2 11/16/16 16:50 104 16 157/79 95 Room Air 11/16/16 16:41 110 16 145/84 94 Room Air 11/16/16 16:30 36.3 119 16 145/84 94 Room Air 11/16/16 15:37 36.3 110 16 175/84 98 Room Air 11/16/16 13:14 36.8 97 172/74 97 11/16/16 09:33 36.7 100 16 172/69 94 Room Air Anesthetic Administered: MAC Level of Alertness: Drowsy, not talking REDD's with Equal Strength: Yes Pain: No Nausea or Vomiting: No Oxygen Delivery: Nasal Cannula Lungs: Clear to Auscultation, Normal Air Movement Dermatome Level: Full Sensation Stuart Olivo MD Nov 16, 2016 17:02
--- NOTE | 2016-11-16 18:14 | NUR ---
diet / daughter Daughter in room and upset that she didn't get to talk with [employer] MD. Advised Dr that the MD had to leave for emergency. Replayed information to daughter and advised her that if she had any questions we could try and get ahold of MD again. Pt diet changed to Advance as tolerated. Pt is drinking clear liquids and tolerating. Daughter insists on her mother getting solid meal as well as pt insisting. Advanced diet to general and educated pt to eat very slowly small bites at a time and order a soft style food. Care continues
[2016-11-16] MEDS: Nystatin 100,000 Unit/Gm 15 Gm Powder TOPICAL SCH ×2 (19:43→19:57)
--- NOTE | 2016-11-17 03:43 | NUR ---
GI Tolerating diet without nausea. small amount red blood in with liq stool overnight. Urine clear.
[2016-11-17 06:22] VITALS: BP 137/68; PULSE 98; RESP 20; O2SAT 95
[2016-11-17 06:56] LABS: Mean Corpuscular Hemoglobin 26.6 pg (27.0-35.0); Mean Corpuscular Volume 84.6 fL (81-100)
[2016-11-17] MEDS: Pantoprazole 8 mg/Hr Infusion IV SCH ×2 (07:30)
--- NOTE | 2016-11-17 07:43 | PCM.PNSURG ---
Subjective Date of Service: Nov 17, 2016 Date of Service: Nov 17, 2016 Subjective: no acute events overnight. hb 8.8 this am. no overt signs gi bleed Postop General: No Complaints Objective Vital Sign- Last 8 Hours Date Time Temp Pulse Resp B/P Pulse Ox O2 Delivery O2 Flow Rate FiO2 11/17/16 06:22 36.5 98 20 137/68 95 Room Air Intake and Output- Last 8 Hour 11/17/16 Cumulative From/Thru 07:00 11/14/16 08:24 - 11/17/16 06:22 Intake Total 400 ml 5686 ml Output Total 1200 ml 2800 ml Balance -800 ml 2886 ml Intake Oral 400 ml 1800 ml IV Total 3886 ml Output Urine Total 1200 ml 2800 ml # Voids 4 # Bowel Movements 1 8 General: Oriented X3 Neck: Supple Lungs: Clear to Auscultation Heart: Exam Unremarkable Abdomen: Benign, Soft, Non-tender, Non-distended, Normoactive bowel tones Extremities: Distal Pulses Palpable Result Diagram: 11/17/1660111/17/16601 Assessment & Plan Impression This is an 81-year-old, female with history of atrial fibrillation, on Pradaxa, history of a questionable stricture of the colon, status post partial colectomy, history of hysterectomy, peripheral arterial disease, coronary artery disease, congestive heart failure, hyperlipidemia, hypertension, hyperparathyroidism, scoliosis, osteoporosis, chronic lower back pain, gout, gastroesophageal reflux disease, history of urinary tract infection, left total knee replacement, thyroidectomy, hypothyroidism, back surgery, who presents here for painless rectal bleeding x1 day. s/p colon 11/15/16- IMPRESSION: 1. Mild sigmoid diverticulosis. 2. Blood seen throughout the entire colon, including intubation into the small bowel which showed evidence of bleeding without source. 3. An end-to-side ileocolonic anastomosis that was seen without ulcers or lesions. s/p egd 11/16/16- IMPRESSIONS: Lipomas within the duodenum, otherwise no ulcers or source of bleeding and no overt signs of bleeding. RECOMMENDATIONS: 1. Advance diet as tolerated 2. The patient to followup in GI clinic after discharge. Will recommend an outpatient capsule endoscopy for obscure GI bleed. 3. Okay to discharge home from a GI standpoint given the fact that the patient's hemoglobin has stabilized and no further overt signs of bleeding. will sign off Problems: (1) Ovarian mass, left Status: Acute ICD Code: N83.9 VTE Prophylaxis: SCDs Resuscitation Status: CPR: Attempt Resuscitation Kameron Ackerman MD Nov 17, 2016 07:43
[2016-11-17 08:37] VITALS: BP 175/77; PULSE 105; O2SAT 96
--- NOTE | 2016-11-17 09:21 | PCM.DIMED ---
Discharge Instructions Date of Service Nov 17, 2016 Dates of Hospitalization Nov 14, 2016 at 12:34 Discharge Diagnosis Discharge Diagnosis Acute Bloos loss Anemia , GI bleed while anticoagulated, Pelvic mass suspicious for cancer, Atrial Fibrillation , Acute Renal Failure Diet No restrictions, Low fat, Low Sodium Activity No restrictions Call your provider Bleeding Patient Instructions Follow up with [facility] oncology in 3 days for complex ovarian mass suspicious for cancer Follow up with Gastroenterology in one week as outpatient for capsule endoscopy Follow-up plan Follow up with [facility] oncology in 3 days for complex ovarian mass suspicious for cancer Follow up with Gastroenterology in one week as outpatient for capsule endoscopy Follow-up with PCP in: 1 week (Gastroenterology ) Kameron Monahan MD Nov 17, 2016 09:21
[2016-11-17] MEDS ORDERED: PANT40TA3 PO (09:27)
[2016-11-17] MEDS: Nystatin 100,000 Unit/Gm 15 Gm Powder TOPICAL SCH (10:55)
--- NOTE | 2016-11-17 13:17 | NUR ---
Social Work Discharge: SW acknowledged order for discharge. SW met with patient at bedside to discuss discharge plan. Patient states plan as home with family and daughter who to provide support and care at home. No other needs identified at this time. SW to follow. PLAN: Home with family support and care. No anticipated discharge needs at this time. SW to follow. Cyndi NOVAK
[2016-11-17 14:12] VITALS: BP 139/68; PULSE 98; RESP 18; O2SAT 96
--- NOTE | 2016-11-17 16:20 | NUR ---
DC Pt and son in law who helps care for pt understand all discharge instructions and new prescriptions; they understand to watch for black tary stool or excessive bleeding. . Pt and family understand follow up appointments in which need scheduled as well. IV removed. All pt belongings gathered and with pt. Pt packet and Rx in hand. Pt take via WC to front by staff. Pt home with family in which she lives with.
--- NOTE | 2016-11-17 17:17 | PCM.DC.MED ---
Discharge Summary Date of Service Nov 17, 2016 Dates of Hospitalization Date of Hospital Admission Nov 14, 2016 at 12:34 Date of Discharge: Nov 17, 2016 Providers: Admitting Physician: Kameron Ackerman MD Primary Care Physician: Flori Attending Physician: Kameron Ackerman MD Diagnosis at Time of Discharge Diagnosis at Time of Discharge Acute Bloos loss Anemia , GI bleed while anticoagulated, Pelvic mass suspicious for cancer, Atrial Fibrillation , Acute Renal Failure Procedures XRay, CTs & MRIs Abdominal CT scan reviewed: IMPRESSION: 1. Cystic left pelvic/adnexal mass. There is mass effect upon the adjacent structures as described above, including the urinary bladder Finding may indicate ovarian malignancy. Initial further assessment with pelvic ultrasound is recommended. 2. Limited evaluation of the bowel secondary to omission of intravenous and oral contrast. No definite acute process involving the bowel. 3. No evidence of urinary tract calcification, nor traction. 4. Cardiomegaly and coronary artery disease. Other Diagnostics Colonoscopy reviewed : Diverticulosis without diverticulitis. Blood seen throughout the colon without any specific source of the bleeding Brief History This is a 51 years old female with past medical history of colonic polyps, hypertension, hypothyroidism, atrial fibrillation on anticoagulant but back set. Patient presented to the hospital today after she had some episode of red blood per rectum mixed with clots. Patient denies any previous episodes , she denied any hemoptysis, no hematemesis, no hematuria. Hemoglobin [address] scan of the abdomen showed incidental finding of a cystic pelvic/adnexal mass. CT scan was done without contrast Patient denied any chest pain, shortness of breath, fever, chills. Hospital Course 1. Acute blood loss anemia GI bleed overall subsided. Hemoglobin Job from 10 to 8 . Patient is status post colonoscopy and EGD which did not show source of the bleeding . The center was recommended not to resume anticoagulation. Patient is being arranged for a capsule endoscopy as outpatient 2. Acute GI bleed secondary to anticoagulation : Products and Plavix on hold 3. Atrial fibrillation : Rate is under control. Pradaxa on hold due to GI bleed 4. Acute renal failure : Likely secondary to dehydration, and GI bleed. Improved . 5. Complex adnexal/ovarian mass : Ultrasound of the pelvis showed complex mass. [facility] consulted and recommended outpatient follow-up with [facility] oncologist for possible biopsy and further treatment Patient is discharged home in stable condition. She is instructed to return to the hospital for her symptom recurred Exam Vital Signs (Last) Date Time Temp Pulse Resp B/P Pulse Ox O2 Delivery O2 Flow Rate FiO2 11/17/16 14:12 36.7 98 18 139/68 96 Room Air Exam General: Overweight female. Sitting in chair comfortably Neck: Supple, trachea midline, no JVD Chest: Normal respiratory effort, no chest wall tenderness. Long: Clear bilaterally, no crackle, no wheezing Heart: S1-S2 regular rate and rhythm no gallop or murmur Abdomen: Benign Extremity: No edema, no cyanosis, Neurology: AAO x 3, no acute deficit Test 11/14/16 09:05 11/14/16 09:28 11/14/16 10:32 11/15/16 05:11 Neutrophils (%) (Auto) 52.7% (40-74) Lymphocytes (%) (Auto) 34.2% (14-46) Monocytes (%) (Auto) 9.5% (4-12) Eosinophils (%) (Auto) 3.1% (0-5) Basophils (%) (Auto) 0.5% (0-3) Magnesium Level 1.8mg/dL (1.6-2.6) Total Bilirubin 0.3mg/dL (0.0-1.2) Aspartate Amino Transf (AST/SGOT) 18U/L (0-50) Alanine Aminotransferase (ALT/SGPT) 9U/L (0-32) Alkaline Phosphatase 56U/L (25-165) Total Protein 6.1g/dL (6.4-8.4) Albumin 3.7g/dL (3.4-5.0) Lipase 50U/L (13-60) Prothrombin Time 14.3sec (8.1-12.5) Prothromb Time International Ratio 1.33ratio Urine Color Yellow (YELLOW) Urine Appearance Hazy (CLEAR,HAZY) Urine pH 5.5 (5.0-8.0) Urine Specific [place] 1.020 (1.003-1.035) Urine Protein Negativemg/dL (NEG,TRACE) Urine Glucose (UA) Negativemg/dL (NEGATIVE) Urine Ketones Negativemg/dL (NEGATIVE) Urine Occult Blood Negative (NEGATIVE) Urine Nitrite Negative (NEGATIVE) Urine Bilirubin Negative (NEGATIVE) Urine Urobilinogen Normalmg/dL (NORMAL) Urine Leukocyte Esterase Negative (NEGATIVE) Urine RBC 0-2/hpf (0-2) Urine WBC 0-5/hpf (0-5) Urine Epithelial Cells Occasional/hpf (NONE-MOD) Urine Crystals None seen (NONE SEEN) Urine Bacteria None/hpf (NONE-FEW) Urine Hyaline Casts Occasional/lpf (NONE) Urine Granular Casts None seen (NONE SEEN) Urine Waxy Casts None seen (NONE SEEN) Urine Red Blood Cell Casts None seen (NONE SEEN) Urine White Blood Cell Casts None seen (NONE SEEN) Urine Mucus Present (None Seen) Urine Trichomonas None seen (NONE SEEN) Urine Yeast None (NONE SEEN) Urinalysis Comment None Urine Culture Reflexed Not indicated CA 125 Antigen 7.3U/mL (0.0-38.1) Test 11/17/16 06:02 White Blood Count 4.0th/mm3 (3.8-10.1) Red Blood Count 3.31mil/mm3 (3.90-5.20) Hemoglobin 8.8g/dL (12.0-15.6) Hematocrit 28.0% (35.0-46.0) Mean Corpuscular Volume 84.6fL (81-100) Mean Corpuscular Hemoglobin 26.6pg (27.0-35.0) Mean Corpuscular Hemoglobin Concent 31.4% (32.0-37.0) Red Cell Distribution Width 15.3% (12.3-15.4) Platelet Count 194bil/L (150-400) Sodium Level 140mEq/L (134-144) Potassium Level 4.1mEq/L (3.5-5.2) Chloride Level 105mEq/L (97-108) Carbon Dioxide Level 25mmol/L (18-29) Blood Urea Nitrogen 13mg/dL (8-27) Creatinine 1.18mg/dL (0.57-1.00) Estimat Glomerular Filtration Rate 63mL/min (>59) Glucose Level 107mg/dL (60-99) Calcium Level 9.4mg/dL (8.5-10.1) Discharge Medications Discharge Medications Alendronate Sodium (Fosamax) 70 Mg Tablet 70 MG PO monday (Reported) Amiodarone (Amiodarone) 400 Mg Tablet 400 MG PO BID (Reported) Atorvastatin Calcium (Atorvastatin Calcium) 40 Mg Tablet 40 MG PO DAILY ( Reported) Cholecalciferol (Vitamin D3) (Vitamin D3) 2,000 Unit Capsule 2,000 UNIT PO DAILY (Reported) Fluticasone Propionate (Flonase Allergy Relief) 50 Mcg/Actuation [place].susp 1 SPRAY NS DAILY (Reported) Furosemide (Lasix) 40 Mg Tablet 40 MG PO every other day (Reported) Lisinopril (Lisinopril) 40 Mg Tablet 40 MG PO DAILY (Reported) Metoprolol Tartrate (Metoprolol Tartrate) 25 Mg Tablet 50 MG PO BID Prescribed by: LAURENT MCCLAIN MD Pantoprazole DR (Pantoprazole DR) 40 Mg Tablet.dr 40 MG PO DAILY Prescribed by: KAMERON DUBOSE MD Potassium Chloride (Potassium Chloride) 20 Meq Tab.er.prt 20 MEQ PO Everyother day (Reported) TAKE WITH FOOD Vitamin B Complex & Vit C No.4 (Super B Complex) 150 Mg Tablet 150 MG PO DAILY ( Reported) As needed Hydrocodone-Acetaminophen 5-325 mg (Hydrocodone-Acetaminophen 5-325 mg) 1 Each Tablet 1-2 TABLET PO QID PRN PRN For Pain (Reported) Nitroglycerin SL (Nitrostat) 0.4 Mg Tab.subl 0.4 MG SL Q5MIN PRN PRN For Chest Pain Prescribed by: LAURENT MCCLAIN MD Sennosides/Docusate Sodium (Senna-Docusate Sodium Tablet) 1 Each Tablet 2 EACH PO DIRECTED PRN PRN For Constipation (Reported) Followup Plan Disposition: Home Follow-up plan Follow up with [facility] oncology in 3 days for complex ovarian mass suspicious for cancer Follow up with Gastroenterology in one week as outpatient for capsule endoscopy Discharge Diet: No restrictions, Low fat, Low Sodium Discharge Activity: No restrictions Patient Instructions Follow up with [facility] oncology in 3 days for complex ovarian mass suspicious for cancer Follow up with Gastroenterology in one week as outpatient for capsule endoscopy Follow-up with PCP in: 1 week (Gastroenterology ) Time spent 35 minutes spent. Patient seen and examined on the day of discharge. Electrical discharge discussed with patient in detail, all questions and concerns were addressed Kameron Dubose MD Nov 17, 2016 17:17
== END 2016-11-17 16:20 | disposition home or self-care (01) | DRG 378 ==
LOC: SED 08:07 → OSC 12:23 → SED 12:23 → OSC 12:34
PROVIDERS: ADMIT Internal Medicine Gastroenterology; ATTEND Internal Medicine Gastroenterology
PROC: 0DJD8ZZ Inspection of Lower Intestinal Tract, Via Natural or Artificial Opening Endoscopic (ICD-10-PCS; principal; 2016-11-14)
PROC: 0DJ08ZZ Inspection of Upper Intestinal Tract, Via Natural or Artificial Opening Endoscopic (ICD-10-PCS; 2016-11-14)
DX: K92.2 Gastrointestinal hemorrhage, unspecified (principal); D62 Acute posthemorrhagic anemia; N17.9 Acute kidney failure, unspecified; K57.90 Diverticulosis of intestine, part unspecified, without perforation or abscess without bleeding; Z86.010 Personal history of colon polyps; Z87.891 Personal history of nicotine dependence; E86.0 Dehydration; Z79.01 Long term (current) use of anticoagulants; Z98.0 Intestinal bypass and anastomosis status; N83.8 Other noninflammatory disorders of ovary, fallopian tube and broad ligament; B37.2 Candidiasis of skin and nail; T45.515A Adverse effect of anticoagulants, initial encounter